=== PATIENT | female | born 1970 | race Caucasian/White ===

== ENCOUNTER 2016-07-10 06:20 | Outpatient (CLI) ==
[2016-06-09 16:43] VITALS: BMI 35.4
--- NOTE | 2016-07-10 12:45 | STRESSECHO ---
Date of Test: 07/10/16 Reason for Exam: CHEST PAIN, FAMILY HX, WEAKNESS Ordering Physician: CHERI LOPEZ CARDIO-[facility] Current Medications: PRILOSEC, ZOFRAN, ZENPEP Physical Findings: S1, S2, NO S3 Resting EKG: SINUS RHYTHM, NO ACUTE CHANGES Target Heart Rate: 147/173 STAGE MPH/GRADE HEART RATE BPM BLOOD PRESSURE mmhg RHYTHM S-T SEGMENT +/- UP DOWN SYMPTOMS,COMMENTS At Rest 77 112/75 SR X NONE 1 1.7/10% 122 140/78 SR X NONE 2 2.5/12% 3 3.4/14% 4 4.2/16% 5 5.0/18% Immediately after 130 SR X SHORT OF BREATH Durations of Exercise: 4:06 Maximum Heart Rate Reached: 130 Reason for Termination: SHORT OF BREATH INTERPRETATION: 98% OXYGEN SATURATION WITH EXERCISE ON ROOM AIR METS 7.0 1. NO EVIDENCE OF ISCHEMIA BY ST-T WAVE CHANGES (HEART RATE 75/MIN TO 130/MIN) 2. NO CHEST PAIN OR CHEST DISCOMFORT 3. NO ARRHYTHMIAS 4. BLOOD PRESSURE RESPONSE NORMAL NORMAL LEFT VENTRICULAR CONTRACTILITY--RESTING AND POST EXERCISE MTDD
--- NOTE | 2016-07-10 12:54 | ECHOSTRESS ---
Date of Exam: 07/10/16 Ordering Physician: [facility] Reason for Echo: CHEST PAIN, STRESS TEST--NO ISCHEMIA M-Mode Normal Adult Results LV Dimensions Normal Adult Results AoV Opening excursions >1.6 LVEDD-base- 3.5-5.8 Ao root dimensions 2.0-3.7 LVESD-base- 3.1-4.6 L. Atrium dimensions 1.9-3.8 Post. Wall thickness 0.8-1.1 IV septum (thickness) 0.7-1.2 Post. Wall excursion 0.72-1.3 Septal motion Systolic motion R. Ventricular cavity 1.5-2.0 LVEF 60% Paradoxical septal wall motion 2-D: NORMAL LEFT VENTRICULAR CONTRACTILITY AT REST--AND POST EXERCISE ( BORDERLINE LOW LVEF) M-MODE: MV: AV: TV: PV: CHAMBER SIZE: WALL MOTION: NORMAL LEFT VENTRICULAR CONTRACTILITY AT REST--AND POST EXERCISE ( BORDERLINE LOW LVEF) PERICARDIUM: INTERPRETATION: 1. NORMAL LEFT VENTRICULAR CONTRACTILITY AT REST--AND POST EXERCISE (BORDERLINE LOW LVEF) MTDD
--- NOTE | 2016-07-13 09:35 | HOLTER ---
PATIENT INFORMATION AND COMMENTS Indications: CHEST PAIN __ Patient Medications: PRILOSEC, ZENPEP __ Pre-procedure Summary: Protocol: Standard Heart Rate Started: 07/10/16716 Minimum: 49 BPM Weight: 205 LBS Ended: 07/11/16716 Maximum: 153 BPM Height: 63" Duration: 24 HOURS Average: 82 _ INTERPRETATIONS/OBSERVATIONS: 1. BASIC RHYTHM: SINUS, RATE 50/MINUTE TO 150/MINUTE, AVERAGE 80/MINUTE 2. RARE TO INFREQUENT ISOLATED PAC'S AND PVC'S 3. NO ST-T WAVE CHANGES FROM BASELINE 4. NO CORRELATION WITH ACTIVITY LOG MTDD
== END 2016-07-10 06:21 | disposition home or self-care (01) ==
LOC: CAR 06:20
PROVIDERS: ATTEND Internal Medicine Cardiovascular Disease
DX: R07.9 Chest pain, unspecified (principal)

== ENCOUNTER 2016-07-13 13:52 | Outpatient (CLI) ==
[2016-06-09 16:43] VITALS: BMI 35.4
[2016-07-13 14:09] LABS: HEMATOCRIT 40.4 % (37.0-47.0); HEMOGLOBIN 14.5 g/dl (12.0-16.0); MEAN CORPUSCULAR HEMOGLOBIN 34.5 pg (27.0-31.0); MEAN CORPUSCULAR HGB CONC 35.9 (31.8-35.4); MEAN CORPUSCULAR VOLUME 96.2 fl (81.0-99.0); PLATELET COUNT 209 10^3/uL (140-440)
[2016-07-13 14:47] LABS: ERYTHROCYTE SEDIMENTATION RATE 27 mm/hr (0-20); ESR INTERNAL QC INTERNAL QC VALID
[2016-07-14 07:19] LABS: RHEUMATOID ARTHRITIS FACTOR < 10.0 IU/mL (0.0-13.9)
[2016-07-14 16:29] LABS: ANTI-NUCLEAR ANTIBODY SCREEN Negative (Negative); C-REACTIVE PROTEIN 5.1 mg/L (0.0-4.9)
== END 2016-07-13 13:53 | disposition home or self-care (01) ==
LOC: LAB 13:52
PROVIDERS: ATTEND Preventive Medicine Undersea and Hyperbaric Medicine
DX: F41.9 Anxiety disorder, unspecified (principal); R53.83 Other fatigue; D53.9 Nutritional anemia, unspecified
CPT/HCPCS: 36415; 82607; 85027; 85651; 86038; 86140; 86430

== ENCOUNTER 2016-08-01 11:04 | Emergency (ER) ==
[2016-08-01 11:11] VITALS: BP 107/78; TEMP 98.5; BMI 36.5
[2016-08-01] MEDS ORDERED: DEMEROL 25 MG/ML SYRINGE IM STA (11:37)
[2016-08-01] MEDS ORDERED: GI COCKTAIL PO STA (11:37)
[2016-08-01] MEDS ORDERED: ZOFRAN 4 MG/2 ML IM STA (11:37)
--- NOTE | 2016-08-01 11:53 | ED.PDOC ---
[id number] [id number] Patient started with vomitings on , watery, and green now, diarrhea, non bloody, now belly pain throat is on fire. also burning urination, Time Seen by Physician: 11:51 Mode of Arrival: Walk-In Information Source: Patient Primary Care Provider: BINDU PATTON JR Nursing and Triage Documentation Reviewed and Agree: Yes GI Complaint Exam - Abdominal Pain Complaint/Exam Onset: Gradual Symptoms Are: Still present Timing: Constant Initial Severity: Mild Current Severity: Moderate Location of Pain: Epigastric, Suprapubic Character: Reports: Aching, Burning Aggravating: Reports: Movement, Food Alleviating: Reports: None Associated Signs and Symptoms: Reports: Dysuria, Urinary frequency, Nausea, Vomiting, Diarrhea AAA Risk Factors: Reports: None Cardiac Risk Factors: Reports: None Ectopic Risk Factors: Reports: None Ovarian Torsion Risk Factors: Reports: None Surgical Obstruction Risk Factors: Reports: None Related Surgical History: Reports: None Patient Rh Status: Unknown Abdominal Findings: Absent: Pulsatile mass, Abdominal distention, Unequal femoral pulses Differential Diagnoses: Gastroenteritis, PUD Review of Systems - Review Of Systems Constitutional: Reports: Weakness Eyes: Reports: No symptoms Ears, Nose, Mouth, Throat: Reports: No symptoms Respiratory: Reports: No symptoms Cardiac: Reports: No symptoms GI: Reports: Abdominal pain, Diarrhea, Nausea, Poor fluid intake, Vomiting : Reports: No symptoms Musculoskeletal: Reports: No symptoms Skin: Reports: No symptoms Neurological: Reports: No symptoms Endocrine: Reports: No symptoms Hematologic/Lymphatic: Reports: No symptoms All Other Systems: Reviewed and Negative Past Medical History - Past Medical History Previously Healthy: Yes Endocrine: Reports: None Cardiovascular: Reports: Hypertension, Other (SUPERVENTRICULAR TACHY) Respiratory: Reports: None Hematological: Reports: None Gastrointestinal: Reports: GERD, Pancreatitis (stone in tissue of pancreatic bile duct, pancreatitis), Other (HIATAL HERNIA, bowel obstructionx3) Genitourinary: Reports: UTI Neuro/Psych: Reports: TIA (MINI STROKES ), Anxiety, Depression Musculoskeletal: Reports: None Cancer: Reports: None Last Menstrual Period: hysterectomy - Surgical History General Surgical History: Reports: Hysterectomy, Cholecystectomy ( CYST L ADRENAL GLAND) - Family History Family History: Reports: Unknown - Social History Smoking Status: Current every day smoker, Light tobacco smoker Hx Substance Use: No Alcohol Screening: None Physical Exam - Physical Exam Appearance: Ill-appearing, Obese Eyes: WILFREDO, EOMI, Conjunctiva clear ENT: Ears normal, Nose normal, Oropharynx normal Respiratory: Airway patent, Breath sounds clear, Breath sounds equal, Respirations nonlabored Cardiovascular: RRR, Pulses normal, No rub, No murmur GI/: Soft, Nontender, No masses, Bowel sounds normal, No Organomegaly Musculoskeletal: Normal strength, ROM intact, No edema, No calf tenderness Skin: Warm, Dry, Normal color Neurological: Sensation intact, Motor intact, Reflexes intact, Cranial nerves intact, Alert, Oriented Psychiatric: Affect appropriate, Mood appropriate Interpretation - Radiology Interpretation Radiology Interpretation By: Radiologist Radiology Results: Negative Re-Evaluation - Re-Evaluation Status: Improved Critical Care Note - Critical Care Note Total Time (mins): 0 Course - Course Hematology/Chemistry: 08/01/16 11:55 08/01/16 11:55 Orders, Labs, Meds: Lab Review 08/01/16 02 11:55 12:40 WBC 11.96 H RBC 4.30 Hgb 14.3 Hct 40.7 MCV 94.7 MCH 33.3 H MCHC 35.1 RDW Coeff of Claudia 12.6 Plt Count 194 Immature Gran % (Auto) 0.3 Neut % (Auto) 79.7 Lymph % (Auto) 13.3 [place] % (Auto) 4.7 Eos % (Auto) 1.8 Baso % (Auto) 0.2 Immature Gran # (Auto) 0.0 Neut # 9.5 H Lymph # 1.6 [place] # 0.6 Eos # 0.2 Baso # 0.0 Sodium 141 Potassium 3.8 Chloride 104 Carbon Dioxide 26 Anion Gap 14.8 BUN 9 Creatinine 0.85 Estimated GFR (MDRD) 72.00 BUN/Creatinine Ratio 10.58 Glucose 110 Calcium 9.3 Total Bilirubin 0.46 AST 13 L ALT 11 L Alkaline Phosphatase 104 H Total Protein 7.0 Albumin 3.5 Globulin 3.5 Albumin/Globulin Ratio 1.00 Amylase 17 L Lipase 31 Urine Color Yellow Urine Clarity Clear Urine pH 6.0 Ur Specific Moodus 1.015 Urine Protein Negative Urine Glucose (UA) Negative Urine Ketones Negative Urine Blood Negative Urine Nitrite Negative Urine Bilirubin Negative Urine Urobilinogen 1.0 Ur Leukocyte Esterase Negative Orders Category Date Time Status AMYLASE Stat LAB 08/01/16 11:55 Completed CBC W/ AUTO DIFF Stat LAB 08/01/16 11:55 Completed COMPREHENSIVE METABOLIC PANEL Stat LAB 08/01/16 11:55 Completed LIPASE Stat LAB 08/01/16 11:55 Completed URINALYSIS C & S IF INDICATED Stat LAB 08/01/16 12:40 Completed Mag-Al Plus//Lidocaine [Gi Cocktail] MEDS 08/01/16 11:37 Discontinued 30 ml PO ONCE STA Meperidine HCl/Pf [Demerol 25 mg/ml Syringe] MEDS 08/01/16 11:37 Discontinued 25 mg IM ONCE STA Ondansetron HCl/Pf [Zofran 4 mg/2 ml] MEDS 08/01/16 11:37 Discontinued 4 mg IM ONCE STA CT ABDOMEN/PELVIS WO CONTRAST Stat RADS 08/01/16 11:37 Completed Medications Discontinued Medications Generic Name Dose Route Start Last Admin Trade Name Freq PRN Reason Stop Dose Admin Al Hydroxide/Mg Hydroxide 30 ml 08/01/16 11:37 08/01/16 12:22 Gi Cocktail PO 08/01/16 11:38 30 ml ONCE STA Administration Meperidine HCl 25 mg 08/01/16 11:37 08/01/16 11:55 Demerol 25 Mg/Ml Syringe IM 08/01/16 11:38 25 mg ONCE STA Administration Ondansetron HCl 4 mg 08/01/16 11:37 08/01/16 11:55 Zofran 4 Mg/2 Ml IM 08/01/16 11:38 4 mg ONCE STA Administration Vital Signs: Temp Pulse Resp BP Pulse Ox 08/01/16 11:05 98.5 F 122 H 20 107/78 97 Departure - Departure Time of Disposition: 12:58 Disposition: HOME SELF-CARE Discharge Problem: Gastroenteritis Instructions: Gastroenteritis (ED) Condition: Stable Pt referred to PMD for follow-up: Yes Additional Instructions: INCREASE HYDRATION SOFT DIET FOR 3-4 DAYS Prescriptions: Sucralfate Susp [Carafate] 1 gm PO ACHS #1 bottle Allergies/Adverse Reactions: Allergies amoxicillin Adverse Reaction (Verified 08/01/16 11:14) ciprofloxacin [From Cipro] Adverse Reaction (Verified 08/01/16 11:14) ciprofloxacin HCl [From Cipro] Adverse Reaction (Verified 08/01/16 11:14) erythromycin base Adverse Reaction (Verified 08/01/16 11:14) Sulfa (Sulfonamide Antibiotics) Adverse Reaction (Verified 08/01/16 11:14) Home Medications: Ambulatory Orders Lipase/Protease/Amylase [Sadia Hinton 36,000 Units Capsule] 1 each PO TID 06/09/16 Promethazine HCl [Phenergan Tab] 25 mg PO QID PRN #12 tablet 06/09/16 Sucralfate Susp [Carafate] 1 gm PO ACHS #1 bottle 08/01/16 Disposition Discussed With: Patient, Family
[2016-08-01 12:08] LABS: BASOPHILS % (AUTO) 0.2 % (0.0-3.0); EOSINOPHILS # (AUTO) 0.2 K/ul (0.0-0.7); EOSINOPHILS % (AUTO) 1.8 % (0.0-7.0); HEMATOCRIT 40.7 % (37.0-47.0); HEMOGLOBIN 14.3 g/dl (12.0-16.0); IMMATURE GRANULOCYTE % (AUTO) 0.3 % (0.0-5.0); LYMPHOCYTES # (AUTO) 1.6 K/uL (0.60-3.4); LYMPHOCYTES % (AUTO) 13.3 (10.0-50.0); MEAN CORPUSCULAR HEMOGLOBIN 33.3 pg (27.0-31.0); MEAN CORPUSCULAR HGB CONC 35.1 (31.8-35.4); MEAN CORPUSCULAR VOLUME 94.7 fl (81.0-99.0); MONOCYTES # (AUTO) 0.6 K/uL (0.4-2.0); MONOCYTES % (AUTO) 4.7 (0-10); NEUTROPHILS # (AUTO) 9.5 K/ul (2.0-6.9); NEUTROPHILS % (AUTO) 79.7; PLATELET COUNT 194 10^3/uL (140-440); WHITE BLOOD COUNT 11.96 K/ul (4.6-10.2)
[2016-08-01 12:25] LABS: ALBUMIN 3.5 g/dL (3.4-5.0); ANION GAP 14.8; BILIRUBIN,TOTAL 0.46 mg/dL (0.00-1.20); BUN/CREATININE RATIO 10.58; CALCIUM 9.3 mg/dL (8.2-10.2); CREATININE 0.85 mg/dL (0.60-1.30); POTASSIUM 3.8 mmol/L (3.5-5.10)
--- NOTE | 2016-08-01 12:27 | CT ---
EXAM: CT abdomen pelvis without contrast HISTORY: Abdominal pain COMPARISON: 08/10/2015 TECHNIQUE: CT abdomen pelvis performed without intravenous contrast. Coronal and sagittal reformat isabell images obtained. FINDINGS: Mild subsegmental atelectasis at the lung bases. No free air. No acute abnormalities of the bones. There is degenerative change in the spine. Evaluation organ parenchyma limited without contrast. The heart normal in size. There is a small pericardial effusion, grossly unchanged. Ev aluation organ parenchyma limited without contrast. Liver appears normal. Patient status post chol ecystectomy. Pancreas unremarkable. Spleen appears normal. There is stable left adrenal adenoma m easuring 2.2 cm. Right adrenal gland appears normal. No hydronephrosis or nephrolithiasis. No balaji culi visualized in normal course of the ureters. Bladder unremarkable. Patient status post hystere ctomy. There is stable left ovarian cyst measuring 2.4 cm. Aorta normal caliber. No lymphadenopat hy or ascites. Stomach appears normal. No dilated loops small bowel. Patient status post append ectomy. There is increased submucosal fat deposition in the colon.. There is mild colonic divertic ulosis. No inflammatory stranding in the abdomen pelvis IMPRESSION: 1. No acute inflammatory process identified in the abdomen or pelvis. 2. Small pericardial effusion, grossly unchanged. 3. Mild colonic diverticulosis. 4. Stable left adrenal adenoma. 5. Stable left ovarian cyst measuring 2.2 cm. 6. Increased submucosal fat deposition in the colon, a finding be seen in sequela of remote inflamm ation or infection, such as inflammatory bowel disease.
[2016-08-01 12:54] LABS: ADD URINE MICROSCOPIC NO; BILIRUBIN,URINE Negative (NEGATIVE); KETONES,URINE Negative (NEGATIVE); LEUKOCYTE ESTERASE ,URINE Negative (NEGATIVE); NITRITE,URINE Negative (NEGATIVE); PROTEIN,URINE Negative (NEGATIVE); URINE, BLOOD Negative (NEGATIVE)
== END 2016-08-01 13:43 | disposition home or self-care (01) ==
LOC: ED 11:04
DX: K52.9 Noninfective gastroenteritis and colitis, unspecified (principal); R30.0 Dysuria; R35.0 Frequency of micturition; F17.210 Nicotine dependence, cigarettes, uncomplicated; Z79.899 Other long term (current) drug therapy
CPT/HCPCS: 36415; 80053; 81001; 82150; 83690; 85025; 96372; 99283

== ENCOUNTER 2016-08-29 11:41 | Emergency (ER) ==
[2016-08-29 11:41] VITALS: BMI 36.5
[2016-08-29 11:59] VITALS: BP 111/72; TEMP 100.6
[2016-08-29] MEDS ORDERED: DECADRON 4 MG/ML SDV IM STA (12:17)
--- NOTE | 2016-08-29 12:21 | ED.PDOC ---
General ED Provider: Dr. BENNIE WOODS Chief Complaint: Respiratory Complaint Stated Complaint: coughing, sinus draiange, fever, Time Seen by Physician: 12:19 Mode of Arrival: Walk-In Information Source: Patient Primary Care Provider: BINDU PATTON JR Nursing and Triage Documentation Reviewed and Agree: Yes Respiratory Complaint Exam - Respiratory Complaint/Exam Symptoms Are: Still present Timing: Constant Initial Severity: Mild Current Severity: Mild Location: Nose, Throat, Chest Character: Reports: Productive cough Aggravating: Reports: Allergens, Passive smoke exposure Alleviating: Reports: None Associated Signs and Symptoms: Reports: Fever, URI, Nasal congestion, Hoarseness. Denies: Rapid breathing, Dyspnea, Chills, Chest pain, Pleuritic chest pain, Wheezing, Hemoptysis, Dizziness, Calf pain, Calf swelling, Edema, Sinus discomfort, Vomiting, Sore throat, Weight loss, Decreased oral intake, Increased thirst, Increased appetite, Increased urination History of Healthcare-Acquired Pneumonia: No Related Surgical History: Reports: None Pulmonary Embolism Risk Factors: None Cardiac Risk Factors: Reports: None Pseudomonas Risk Factors: Reports: None Tuberculosis Risk Factors: Reports: None Status Asthmaticus Risk Factors: Reports: None Home Oxygen Use: No Recent Stress Test: No Recent Echo/LV Function: No Current Antibiotic Use: No Current Asthma Medication Use: No Respiratory Distress: None Inadequate Respiratory Effort: No Dysphagia Present: No Stridor Present: No JVD Present: No Retractions: Not Present Diminished Breath Sounds: No Sinus Tenderness: None Grunting Respirations: No Kussmaul Respirations: No Differential Diagnoses: Pneumonia, Bronchitis Review of Systems - Review Of Systems Constitutional: Reports: Fever, Malaise Eyes: Reports: No symptoms Ears, Nose, Mouth, Throat: Reports: Nose discharge Respiratory: Reports: Cough Cardiac: Reports: No symptoms GI: Reports: No symptoms : Reports: No symptoms Musculoskeletal: Reports: No symptoms Skin: Reports: No symptoms Neurological: Reports: No symptoms Endocrine: Reports: No symptoms Hematologic/Lymphatic: Reports: No symptoms All Other Systems: Reviewed and Negative Past Medical History - Past Medical History Previously Healthy: Yes Endocrine: Reports: None Cardiovascular: Reports: Hypertension, Other (SUPERVENTRICULAR TACHY) Respiratory: Reports: None Hematological: Reports: None Gastrointestinal: Reports: GERD, Pancreatitis (stone in tissue of pancreatic bile duct, pancreatitis), Other (HIATAL HERNIA, bowel obstructionx3) Genitourinary: Reports: UTI Neuro/Psych: Reports: TIA (MINI STROKES ), Anxiety, Depression Musculoskeletal: Reports: None Cancer: Reports: None Last Menstrual Period: n/a - Surgical History General Surgical History: Reports: Hysterectomy, Cholecystectomy ( CYST L ADRENAL GLAND) - Family History Family History: Reports: Unknown - Social History Smoking Status: Current every day smoker, Light tobacco smoker Smoking Cessation Counseling Time: > 3 min - 10 min Hx Substance Use: No Alcohol Screening: None Physical Exam - Physical Exam Appearance: Well-appearing, Obese Eyes: WILFREDO, EOMI, Conjunctiva clear ENT: Rhinorrhea Respiratory: Airway patent, Breath sounds clear, Breath sounds equal, Respirations nonlabored Cardiovascular: RRR, Pulses normal, No rub, No murmur GI/: Soft, Nontender, No masses, Bowel sounds normal, No Organomegaly Musculoskeletal: Normal strength, ROM intact, No edema, No calf tenderness Skin: Warm, Dry, Normal color Neurological: Sensation intact, Motor intact, Reflexes intact, Cranial nerves intact, Alert, Oriented Psychiatric: Affect appropriate, Mood appropriate Interpretation - Radiology Interpretation Radiology Interpretation By: Radiologist Radiology Results: Negative Exam Interpreted: CXR Critical Care Note - Critical Care Note Total Time (mins): 0 Course - Course Orders, Labs, Meds: Lab Review 08/29/16 12:48 Influenza A (Rapid) Negative Influenza B (Rapid) Negative Orders Category Date Time Status RAPID FLU A/B Stat LAB 08/29/16 12:48 Completed Dexamethasone 4 mg/ml Inj [Decadron 4 mg/ml Sdv] MEDS 08/29/16 12:17 Discontinued 4 mg IM ONCE STA CHEST, 2 VIEWS PA & LAT Stat RADS 08/29/16 12:17 Completed Medications Discontinued Medications Generic Name Dose Route Start Last Admin Trade Name Freq PRN Reason Stop Dose Admin Dexamethasone Sodium Phosphate 4 mg 08/29/16 12:17 08/29/16 12:41 Decadron 4 Mg/Ml Sdv IM 08/29/16 12:18 4 mg ONCE STA Administration Vital Signs: Temp Pulse Resp BP Pulse Ox 08/29/16 11:42 100.6 F H 104 H 16 111/72 96 Departure - Departure Time of Disposition: 13:52 Disposition: HOME SELF-CARE Discharge Problem: URTI (acute upper respiratory infection) Instructions: Upper Respiratory Infection in Children (ED) Condition: Stable Pt referred to PMD for follow-up: Yes Additional Instructions: NO SMOKING INCREASE HYDRATION TAKE MEDICATIONS WITH FOOD Prescriptions: Cephalexin [Keflex] 500 mg PO Q12HR #20 capsule Guaifenesin/Codeine Phosphate [Robitussin AC Syrup] 10 ml PO Q6H #1 bottle Prednisone 10 mg PO BIDWM #14 tablet Allergies/Adverse Reactions: Allergies amoxicillin Adverse Reaction (Verified 08/29/16 11:46) ciprofloxacin [From Cipro] Adverse Reaction (Verified 08/29/16 11:46) ciprofloxacin HCl [From Cipro] Adverse Reaction (Verified 08/29/16 11:46) erythromycin base Adverse Reaction (Verified 08/29/16 11:46) Sulfa (Sulfonamide Antibiotics) Adverse Reaction (Verified 08/29/16 11:46) Home Medications: Ambulatory Orders Lipase/Protease/Amylase [Sadia Dr 36,000 Units Capsule] 1 each PO TID 06/09/16 Sucralfate Susp [Carafate] 1 gm PO ACHS #1 bottle 08/01/16 Cephalexin [Keflex] 500 mg PO Q12HR #20 capsule 08/29/16 Citalopram Hydrobromide [Celexa] 20 mg PO DAILY 08/29/16 Clonazepam [Klonopin] 0.5 mg PO BID 08/29/16 Guaifenesin/Codeine Phosphate [Robitussin AC Syrup] 10 ml PO Q6H #1 bottle 08/29 Prednisone 10 mg PO BIDWM #14 tablet 08/29/16 Ranitidine HCl 300 mg PO DAILY 08/29/16 Disposition Discussed With: Patient
--- NOTE | 2016-08-29 13:02 | DI ---
EXAM: CHEST FRONTAL AND LATERAL VIEWS HISTORY: Cough. COMPARISON: 04/09/2016 FINDINGS: Heart size and mediastinal contour remain within normal limits. No acute infiltrates. Normal vascularity with no pleural fluid or pneumothorax. The bony thorax has no acute finding. IMPRESSION: No acute process.
[2016-08-29 13:10] LABS: FLU INTERNAL QC INTERNAL QC VALID; RAPID FLU A NEGATIVE (NEGATIVE); RAPID FLU B NEGATIVE (NEGATIVE)
== END 2016-08-29 14:10 | disposition home or self-care (01) ==
LOC: ED 11:41
DX: J06.9 Acute upper respiratory infection, unspecified (principal); F17.210 Nicotine dependence, cigarettes, uncomplicated
CPT/HCPCS: 87804; 96372; 99283

== ENCOUNTER 2016-10-16 11:08 | Emergency (ER) ==
[2016-10-16 11:22] VITALS: BP 111/80; TEMP 97; BMI 37.2
[2016-10-16 12:25] LABS: BASOPHILS % (AUTO) 0.3 % (0.0-3.0); EOSINOPHILS # (AUTO) 0.2 K/ul (0.0-0.7); EOSINOPHILS % (AUTO) 2.1 % (0.0-7.0); HEMATOCRIT 40.3 % (37.0-47.0); HEMOGLOBIN 13.8 g/dl (12.0-16.0); IMMATURE GRANULOCYTE % (AUTO) 0.3 % (0.0-5.0); LYMPHOCYTES # (AUTO) 2.6 K/uL (0.60-3.4); LYMPHOCYTES % (AUTO) 25.3 (10.0-50.0); MEAN CORPUSCULAR HEMOGLOBIN 32.8 pg (27.0-31.0); MEAN CORPUSCULAR HGB CONC 34.2 (31.8-35.4); MEAN CORPUSCULAR VOLUME 95.7 fl (81.0-99.0); MONOCYTES # (AUTO) 0.4 K/uL (0.4-2.0); MONOCYTES % (AUTO) 4.1 (0-10); NEUTROPHILS # (AUTO) 7.1 K/ul (2.0-6.9); NEUTROPHILS % (AUTO) 67.9; PLATELET COUNT 197 10^3/uL (140-440); RED BLOOD COUNT 4.21 10^6/ul (4.20-5.40); WHITE BLOOD COUNT 10.44 K/ul (4.6-10.2)
[2016-10-16 12:51] LABS: ALBUMIN 3.5 g/dL (3.4-5.0); ALBUMIN/GLOBULIN RATIO 1.09; BILIRUBIN,TOTAL 0.3 mg/dL (0.00-1.20); BUN/CREATININE RATIO 13.88; CALCIUM 8.8 mg/dL (8.2-10.2); CREATININE 0.72 mg/dL (0.60-1.30); TOTAL PROTEIN 6.7 g/dL (6.4-8.2)
--- NOTE | 2016-10-16 12:57 | CT ---
EXAM: CT ABDOMEN AND PELVIS HISTORY: Abdominal pain, left flank TECHNIQUE: CT abdomen and pelvis without intravenous contrast. Images were reconstructed using 5 m m section thickness. Reformations were prepared. COMPARISON: 08/01/2016 FINDINGS: Diagnostic limitations exist without including contrast enhanced images. No focal hepatic lesions. There is a tiny amount of pneumobilia which has been seen on previous exams possibly related to pre vious procedure or incompetent sphincter. Spleen within normal limits. Gallbladder is absent. No pancreatic pathology is suggested. There is a 1.8 cm fatty nodule the left adrenal gland which is s table in size most consistent with an adenoma. Kidneys have no evidence of hydronephrosis or nephro lithiasis. There is no perinephric fat stranding. Ureters are clear. Minimal aortic atherosclerosi s. Stomach is unremarkable. Appendix has been removed. Normal bowel gas pattern. Uterus has been rem ashley. What appears to represent the left ovary has a small 2.3 cm cystic mass. Urinary bladder is unremarkable. There is no ascites or inflammatory infiltration of the abdominal fat. No abdominal wall hernia. Bones reveal moderately severe facet arthropathy of the lumbosacral junct ion. Lung bases reveal a stable small pericardial effusion and no consolidations. There is no pneu moperitoneum. IMPRESSION: 1. No etiology for the patient's symptoms identified. 2. Tiny amount of pneumobilia also seen on previous exams. 3. Fatty left adrenal nodule is stable, likely adenoma. 4. Small 2.3 cm cystic mass of the left ovary. This can be followed by ultrasound to assure simple nature. 5. Small stable pericardial effusion.
[2016-10-16] MEDS: ZOFRAN 4 MG/2 ML IM STA (12:59)
[2016-10-16] MEDS: MORPHINE 4 MG/ML SYRINGE IM STA ×2 (13:00→13:57)
[2016-10-16 13:02] LABS: BILIRUBIN,URINE Negative (NEGATIVE); KETONES,URINE Negative (NEGATIVE); LEUKOCYTE ESTERASE ,URINE Negative (NEGATIVE); NITRITE,URINE Negative (NEGATIVE); PH,URINE 5.5 (5-9); PROTEIN,URINE Negative (NEGATIVE); URINE, BLOOD Negative (NEGATIVE)
[2016-10-16 13:04] LABS: ADD URINE MICROSCOPIC NO
--- NOTE | 2016-10-16 14:26 | US ---
EXAM: Transvaginal pelvic ultrasound. History: Left lower quadrant abdominal pain. Comparison: CT abdomen pelvis 10/16/2016 Technique: Multiple sonographic images through the pelvis were obtained. Color duplex Doppler was used to interrogate vascular flow. Findings: The uterus is not seen and likely has been surgically removed. The right ovary is not seen and like ly has been surgically removed. 2.9 cm x 1.7 cm x 3.1 cm cystic left adnexal lesion with minimal internal echoes. No fluid in the pelvis. Impression: Minimally complicated cystic left adnexal lesion.
--- NOTE | 2016-10-16 14:39 | ED.PDOC ---
General ED Provider: Dr. ELVIS CROCKETT Chief Complaint: Abdominal Pain Stated Complaint: ABDOMINAL PAIN Time Seen by Physician: 11:10 (CHRONIC WORSE TODAY) Mode of Arrival: Walk-In Information Source: Patient Exam Limitations: No limitations Primary Care Provider: BINDU PATTON JR Nursing and Triage Documentation Reviewed and Agree: Yes (HAS OVARIAN CYSTS) GI Complaint Exam - Abdominal Pain Complaint/Exam Onset: Gradual Duration: 1 DAY Timing: Constant Initial Severity: Moderate Current Severity: Moderate Location of Pain: LLQ Radiates To: Reports: LLQ Character: Reports: Cramping Aggravating: Reports: None Alleviating: Reports: None Associated Signs and Symptoms: Denies: Diaphoresis, Fever, Cough, Chest pain, Dizziness, Back pain, Constipation, Blood in stool, Dysuria, Urinary frequency, Decreased urine output, Decreased appetite, Vaginal bleeding, Vaginal discharge , Nausea, Vomiting, Diarrhea, Sore throat, Decreased activity Related History: Reports: Similar episode AAA Risk Factors: Reports: Hypertension Cardiac Risk Factors: Reports: Hypertension Ectopic Risk Factors: Reports: None Ovarian Torsion Risk Factors: Reports: None Surgical Obstruction Risk Factors: Reports: None Related Surgical History: Reports: None Patient Rh Status: Unknown Abdominal Findings: Present: None Differential Diagnoses: Appendicitis, Bowel Obstruction, Constipation, Diverticulitis, Gastroenteritis, Hepatitis, Pancreatitis, Ovarian Cyst Review of Systems - Review Of Systems Constitutional: Reports: No symptoms Eyes: Reports: No symptoms Ears, Nose, Mouth, Throat: Reports: No symptoms Respiratory: Reports: No symptoms Cardiac: Reports: No symptoms GI: Reports: Abdominal pain : Reports: No symptoms Musculoskeletal: Reports: No symptoms Skin: Reports: No symptoms Neurological: Reports: No symptoms Endocrine: Reports: No symptoms Hematologic/Lymphatic: Reports: No symptoms All Other Systems: Reviewed and Negative Past Medical History - Past Medical History Previously Healthy: Yes Endocrine: Reports: None Cardiovascular: Reports: Hypertension, Other (SUPERVENTRICULAR TACHY) Respiratory: Reports: None Hematological: Reports: None Gastrointestinal: Reports: GERD, Pancreatitis (stone in tissue of pancreatic bile duct, pancreatitis), Other (HIATAL HERNIA, bowel obstructionx3) Genitourinary: Reports: UTI Neuro/Psych: Reports: TIA (MINI STROKES ), Anxiety, Depression Musculoskeletal: Reports: None Cancer: Reports: None Last Menstrual Period: hysterectomy - Surgical History General Surgical History: Reports: Hysterectomy, Cholecystectomy ( CYST L ADRENAL GLAND) - Family History Family History: Reports: Unknown - Social History Smoking Status: Current every day smoker, Light tobacco smoker Hx Substance Use: No Alcohol Screening: None Physical Exam - Physical Exam Appearance: Well-appearing, No pain distress, Well-nourished Eyes: WILFREDO, EOMI, Conjunctiva clear ENT: Ears normal, Nose normal, Oropharynx normal Respiratory: Airway patent, Breath sounds clear, Breath sounds equal, Respirations nonlabored Cardiovascular: RRR, Pulses normal, No rub, No murmur GI/: Soft, Nontender, No masses, Bowel sounds normal, No Organomegaly Musculoskeletal: Normal strength, ROM intact, No edema, No calf tenderness Skin: Warm, Dry, Normal color Neurological: Sensation intact, Motor intact, Reflexes intact, Cranial nerves intact, Alert, Oriented Psychiatric: Affect appropriate, Mood appropriate Interpretation - Radiology Interpretation Radiology Interpretation By: Radiologist Radiology Results: Positive (COMPLEX CYSTS ON LEFT OVARY) Critical Care Note - Critical Care Note Total Time (mins): 0 Course - Course Hematology/Chemistry: 10/16/16 12:15 10/16/16 12:15 Orders, Labs, Meds: Lab Review 10/16/16 10/16/16 11:35 12:15 WBC 10.44 H RBC 4.21 Hgb 13.8 Hct 40.3 MCV 95.7 MCH 32.8 H MCHC 34.2 RDW Coeff of Claudia 12.8 Plt Count 197 Immature Gran % (Auto) 0.3 Neut % (Auto) 67.9 Lymph % (Auto) 25.3 Piatt % (Auto) 4.1 Eos % (Auto) 2.1 Baso % (Auto) 0.3 Immature Gran # (Auto) 0.0 Neut # 7.1 H Lymph # 2.6 Piatt # 0.4 Eos # 0.2 Baso # 0.0 Sodium 138 Potassium 4.0 Chloride 109 H Carbon Dioxide 22 Anion Gap 11.0 BUN 10 Creatinine 0.72 Estimated GFR (MDRD) 87.00 BUN/Creatinine Ratio 13.88 Glucose 97 Calcium 8.8 Total Bilirubin 0.30 AST 11 L ALT 11 L Alkaline Phosphatase 97 Total Protein 6.7 Albumin 3.5 Globulin 3.2 Albumin/Globulin Ratio 1.09 Amylase 28 Lipase 36 Urine Color Yellow Urine Clarity Clear Urine pH 5.5 Ur Specific [place]ette >=1.030 Urine Protein Negative Urine Glucose (UA) Negative Urine Ketones Negative Urine Blood Negative Urine Nitrite Negative Urine Bilirubin Negative Urine Urobilinogen 0.2 Ur Leukocyte Esterase Negative Orders Category Date Time Status AMYLASE Stat LAB 10/16/16 12:13 Ordered CBC W/ AUTO DIFF Stat LAB 10/16/16 12:13 Ordered COMPREHENSIVE METABOLIC PANEL Stat LAB 10/16/16 12:13 Ordered LIPASE Stat LAB 10/16/16 12:13 Ordered URINALYSIS C & S IF INDICATED Stat LAB 10/16/16 12:13 Uncollected Morphine Sulfate [Morphine 4 mg/ml Syringe] MEDS 10/16/16 12:27 Stat 4 mg IM ONCE STA Morphine Sulfate [Morphine 4 mg/ml Syringe] MEDS 10/16/16 13:46 Stat 4 mg IM ONCE STA Ondansetron HCl/Pf [Zofran 4 mg/2 ml] MEDS 10/16/16 12:27 Stat 4 mg IM ONCE STA CT ABDOMEN/PELVIS WO CONTRAST Stat RADS 10/16/16 12:13 Ordered ULTRASOUND PELVIS WILSON VAGINAL/NONOB [U/S PELVIS WILSON RADS 10/16/16 13:44 Ordered VAGINAL/NON OB] Stat Medications Discontinued Medications Generic Name Dose Route Start Last Admin Trade Name Freq PRN Reason Stop Dose Admin Morphine Sulfate 4 mg 10/16/16 12:27 10/16/16 13:00 Morphine 4 Mg/Ml Syringe IM 10/16/16 12:28 4 mg ONCE STA Administration Morphine Sulfate 4 mg 10/16/16 13:46 10/16/16 13:57 Morphine 4 Mg/Ml Syringe IM 10/16/16 13:47 4 mg ONCE STA Administration Ondansetron HCl 4 mg 10/16/16 12:27 10/16/16 12:59 Zofran 4 Mg/2 Ml IM 10/16/16 12:28 4 mg ONCE STA Administration Vital Signs: Temp Pulse Resp BP Pulse Ox 10/16/16 11:10 97.0 F L 85 20 111/80 93 L Departure - Departure Time of Disposition: 14:39 (SEEN WITH STAFF AT ALL TIMES ) Disposition: HOME SELF-CARE Discharge Problem: Abdominal pain, Complex cyst of left ovary Instructions: Ovarian Cyst (ED), Abdominal Pain (ED), Chronic Abdominal Pain ( ED) Condition: Good Pt referred to PMD for follow-up: No Additional Instructions: Please call your Family Physician as soon as possible to schedule a follow-up appointment. Allergies/Adverse Reactions: Allergies amoxicillin Adverse Reaction (Verified 08/29/16 11:46) ciprofloxacin [From Cipro] Adverse Reaction (Verified 08/29/16 11:46) ciprofloxacin HCl [From Cipro] Adverse Reaction (Verified 08/29/16 11:46) erythromycin base Adverse Reaction (Verified 08/29/16 11:46) Sulfa (Sulfonamide Antibiotics) Adverse Reaction (Verified 08/29/16 11:46) Home Medications: Ambulatory Orders Lipase/Protease/Amylase [Sadia Hinton 36,000 Units Capsule] 1 each PO TID 06/09/16 Sucralfate Susp [Carafate] 1 gm PO ACHS #1 bottle 08/01/16 Cephalexin [Keflex] 500 mg PO Q12HR #20 capsule 08/29/16 Citalopram Hydrobromide [Celexa] 20 mg PO DAILY 08/29/16 Clonazepam [Klonopin] 0.5 mg PO BID 08/29/16 Guaifenesin/Codeine Phosphate [Robitussin AC Syrup] 10 ml PO Q6H #1 bottle 08/29 Prednisone 10 mg PO BIDWM #14 tablet 08/29/16 Ranitidine HCl 300 mg PO DAILY 08/29/16
== END 2016-10-16 14:50 | disposition home or self-care (01) ==
LOC: ED 11:08
DX: N83.202 Unspecified ovarian cyst, left side (principal); I10 Essential (primary) hypertension; F17.210 Nicotine dependence, cigarettes, uncomplicated
CPT/HCPCS: 36415; 80053; 81001; 82150; 83690; 85025; 96372; 99283

== ENCOUNTER 2016-11-18 11:22 | Outpatient (CLI) ==
[2016-11-18 13:09] LABS: ALBUMIN/GLOBULIN RATIO 1.21; ANION GAP 12.1; BILIRUBIN,TOTAL 0.4 mg/dL (0.00-1.20); CALCIUM 9.5 mg/dL (8.2-10.2); CREATININE 0.75 mg/dL (0.60-1.30); POTASSIUM 4.1 mmol/L (3.5-5.10); TOTAL PROTEIN 7.3 g/dL (6.4-8.2)
--- NOTE | 2016-11-19 13:51 | HOLTER ---
PATIENT INFORMATION AND COMMENTS Indications: PALPITATIONS __ Patient Medications: TRAMADOL, NEXIUM, ONDANSETRON, RANITIDINE, DICYCLOMINE, CREON, LEXAPRO, NITROGLYCERINE __ Pre-procedure Summary: Protocol: Standard Heart Rate Started: 11/18/16 70311 Minimum: 53 BPM Weight: 2O7 LBS Ended: 11/19/16 1251 Maximum: 178 BPM Height: 63" Duration: 24 HOURS Average: 92 BPM _ INTERPRETATIONS/OBSERVATIONS: 1. BASIC RHYTHM: SINUS, RATE 53 TO 170/MINUTE, AVERAGE 90/MINUTE 2. REAR PVC'S/ INFREQUENT PAC'S 3. ONE EPISODE OF SUPRAVENTRICULAR TACHYCARDIA NOTED WITH RATE 170/BPM LASTING OF APPROXIMATELY 9 TO [address]-T WAVE CHANGES FROM BASELINE 5. ACTIVITY LOG NOT MAINTAINED MTDD
[2016-11-20 09:27] LABS: ACTH 9.5 pg/mL (7.2-63.3)
== END 2016-11-18 11:23 | disposition home or self-care (01) ==
LOC: CAR 11:22
PROVIDERS: ATTEND Internal Medicine Cardiovascular Disease
DX: I10 Essential (primary) hypertension (principal); R11.2 Nausea with vomiting, unspecified; R73.9 Hyperglycemia, unspecified; R53.83 Other fatigue; E27.9 Disorder of adrenal gland, unspecified; R00.2 Palpitations
CPT/HCPCS: 36415; 80053; 82024; 82533; 83036; 84439; 84443

== ENCOUNTER 2016-11-29 20:14 | Inpatient (IN) ==
[2016-11-29 20:33] LABS: BASOPHILS % (AUTO) 0.4 % (0.0-3.0); EOSINOPHILS # (AUTO) 0.2 K/ul (0.0-0.7); EOSINOPHILS % (AUTO) 1.5 % (0.0-7.0); HEMATOCRIT 40.9 % (37.0-47.0); HEMOGLOBIN 14.3 g/dl (12.0-16.0); IMMATURE GRANULOCYTE % (AUTO) 0.3 % (0.0-5.0); LYMPHOCYTES # (AUTO) 3.6 K/uL (0.60-3.4); LYMPHOCYTES % (AUTO) 31.6 (10.0-50.0); MEAN CORPUSCULAR VOLUME 94.5 fl (81.0-99.0); MONOCYTES # (AUTO) 0.5 K/uL (0.4-2.0); MONOCYTES % (AUTO) 4.2 (0-10); PLATELET COUNT 207 10^3/uL (140-440); RED BLOOD COUNT 4.33 10^6/ul (4.20-5.40); WHITE BLOOD COUNT 11.33 K/ul (4.6-10.2)
[2016-11-29] MEDS ORDERED: ASPIRIN CHEWABLE PO STA (20:46)
[2016-11-29] MEDS ORDERED: ATIVAN PO STA (20:46)
[2016-11-29] MEDS ORDERED: ZOFRAN 4 MG/2 ML IVP STA (20:46)
[2016-11-29] MEDS ORDERED: MORPHINE 2 MG/ML SYRINGE IVP STA (20:46)
[2016-11-29] MEDS ORDERED: SODIUM CHLORIDE 500 ML IV STA (20:47)
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
[2016-11-29 20:58] LABS: ALBUMIN 3.8 g/dL (3.4-5.0); ALBUMIN/GLOBULIN RATIO 1.19; ANION GAP 13.7; BILIRUBIN,TOTAL 0.56 mg/dL (0.00-1.20); BUN/CREATININE RATIO 10.34; CALCIUM 9.3 mg/dL (8.2-10.2); CREATININE 0.87 mg/dL (0.60-1.30); POTASSIUM 3.7 mmol/L (3.5-5.10); TROPONIN I 0.012 ng/ml (0.0000-0.4000)
--- NOTE | 2016-11-29 22:57 | CT ---
EXAM: CT pulmonary angiogram. HISTORY: Chest pain. Elevated D-dimer. Evaluate for pulmonary embolism. PROCEDURE: After the intravenous injection of contrast a CT pulmonary angiogram was performed with contiguous axial CT images of the chest and multiplanar and 3-D reformats. FINDINGS: There is suboptimal enhancement of the pulmonary arteries secondary to mistiming of the co ntrast bolus in relation to image acquisition and pulmonary embolism cannot be excluded. The heart is within normal limits in size. There is a small pericardial effusion measuring 0.5 cm AP. The thor acic aorta is within normal limits in diameter. There are calcified mediastinal and hilar lymph nod es. There is minimal right lower lobe atelectasis and/or pneumonia. The bones and soft tissues are u nremarkable. There is a 2.6 cm left benign adrenal adenoma. The right adrenal gland is normal in ap pearance. There is minimal pneumobilia. Impression: Nondiagnostic CT pulmonary angiogram as described. Pulmonary embolism cannot be exclud ed. Recommend nuclear medicine ventilation-perfusion lung scan for further evaluation if clinically indicated. Minimal right lower lobe atelectasis and/or pneumonia. Small pericardial effusion as described.
[2016-11-29] MEDS ORDERED: TORADOL IVP STA (22:59)
[2016-11-29] MEDS ORDERED: TYLENOL PO PRN (23:49)
[2016-11-29] MEDS ORDERED: NORCO 5-325 PO PRN (23:49)
[2016-11-29] MEDS ORDERED: MORPHINE 2 MG/ML SYRINGE IVP PRN (23:49)
[2016-11-29] MEDS ORDERED: NITROSTAT SL PRN (23:55)
[2016-11-30] MEDS ORDERED: TORADOL IVP PRN (00:11)
[2016-11-30] MEDS: D5%-NS-KCL 20 MEQ/L IV SOL 1,000 ML IV SCH ×2 (00:37→15:24)
[2016-11-30 01:04] VITALS: BMI 36.8
[2016-11-30] MEDS ORDERED: TORADOL ONE (04:09)
[2016-11-30] MEDS: ZOFRAN 4 MG/2 ML IVP PRN ×2 (05:12→20:25)
[2016-11-30] MEDS: ATIVAN PO PRN ×3 (05:13→22:27)
[2016-11-30 06:14] LABS: BASOPHILS # (AUTO) 0.1 K/uL (0-0.2); BASOPHILS % (AUTO) 0.6 % (0.0-3.0); EOSINOPHILS # (AUTO) 0.2 K/ul (0.0-0.7); EOSINOPHILS % (AUTO) 2.6 % (0.0-7.0); HEMOGLOBIN 13.1 g/dl (12.0-16.0); IMMATURE GRANULOCYTE % (AUTO) 0.2 % (0.0-5.0); LYMPHOCYTES # (AUTO) 2.9 K/uL (0.60-3.4); LYMPHOCYTES % (AUTO) 34.4 (10.0-50.0); MEAN CORPUSCULAR HEMOGLOBIN 33.1 pg (27.0-31.0); MEAN CORPUSCULAR HGB CONC 34.5 (31.8-35.4); MONOCYTES # (AUTO) 0.4 K/uL (0.4-2.0); MONOCYTES % (AUTO) 4.8 (0-10); NEUTROPHILS # (AUTO) 4.9 K/ul (2.0-6.9); NEUTROPHILS % (AUTO) 57.4; PLATELET COUNT 173 10^3/uL (140-440); RED BLOOD COUNT 3.96 10^6/ul (4.20-5.40); WHITE BLOOD COUNT 8.55 K/ul (4.6-10.2)
[2016-11-30 06:39] LABS: ANION GAP 11.9; BLOOD UREA NITROGEN 11 mg/dL (7-18); BUN/CREATININE RATIO 14.28; CALCIUM 8.5 mg/dL (8.2-10.2); CARBON DIOXIDE 22 mmol/L (21-32); CHLORIDE 113 mmol/L (98-107); CREATINE KINASE 47 U/L; CREATININE 0.77 mg/dL (0.60-1.30); GLUCOSE 96 mg/dL (70-110); POTASSIUM 3.9 mmol/L (3.5-5.10); SODIUM 143 mmol/L (136-145)
--- NOTE | 2016-11-30 07:50 | DI ---
EXAM: Chest one view. CLINICAL INDICATION: Chest pain. COMPARISON: 08/29/2016. FINDINGS: A single AP radiograph of the thorax is provided. The pulmonary parenchyma is clear and there is no pleural abnormality. The cardiomediastinal silhou ette and visualized bony structures are unremarkable. IMPRESSION: Negative chest x-ray.
[2016-11-30] MEDS ORDERED: NON-FORMULARY MEDICATION (Ranitidine Hcl [Ranitidine Hcl] 300 MG) PO SCH (09:00)
[2016-11-30] MEDS ORDERED: LOVENOX SUBCUT SCH (09:00)
[2016-11-30] MEDS: ASPIRIN EC PO SCH (09:26)
[2016-11-30] MEDS: LEXAPRO PO SCH (09:27)
[2016-11-30] MEDS: CREON DR 12,000 UNITS CAPSULE PO SCH ×4 (09:27→22:27)
[2016-11-30] MEDS: LOPRESSOR PO SCH (09:28)
[2016-11-30] MEDS: LOVENOX SUBCUT SCH ×2 (09:28→22:27)
[2016-11-30] MEDS: ZANTAC PO SCH (09:29)
--- NOTE | 2016-11-30 09:39 | NM ---
EXAM: Ventilation-perfusion lung scan HISTORY: Chest pain COMPARISON: Chest x-ray of this morning is normal. TECHNIQUE: Patient was injected 5.2 mCi of technetium 99m labeled MAA intravenously. The patient wa s given 31.1 mCi of technetium 99m DTPA aerosol for ventilation imaging. FINDINGS: No segmental or subsegmental perfusion defect is identified. Aerosol distribution is homo geneous in both lung davila throughout. IMPRESSION: Normal VQ scan
[2016-11-30 14:58] LABS: CREATINE KINASE 47 U/L
[2016-11-30 22:48] LABS: CREATINE KINASE 48 U/L
[2016-12-01] MEDS: LOPRESSOR PO SCH ×3 (02:41→20:05)
[2016-12-01] MEDS: D5%-NS-KCL 20 MEQ/L IV SOL 1,000 ML IV SCH ×2 (04:28→20:30)
[2016-12-01] MEDS: ZANTAC PO SCH (05:31)
[2016-12-01 06:18] LABS: BASOPHILS % (AUTO) 0.4 % (0.0-3.0); EOSINOPHILS # (AUTO) 0.2 K/ul (0.0-0.7); EOSINOPHILS % (AUTO) 2.2 % (0.0-7.0); HEMATOCRIT 37.2 % (37.0-47.0); HEMOGLOBIN 12.8 g/dl (12.0-16.0); IMMATURE GRANULOCYTE % (AUTO) 0.3 % (0.0-5.0); LYMPHOCYTES # (AUTO) 2.4 K/uL (0.60-3.4); MEAN CORPUSCULAR HEMOGLOBIN 32.9 pg (27.0-31.0); MEAN CORPUSCULAR HGB CONC 34.4 (31.8-35.4); MEAN CORPUSCULAR VOLUME 95.6 fl (81.0-99.0); MONOCYTES # (AUTO) 0.3 K/uL (0.4-2.0); MONOCYTES % (AUTO) 4.3 (0-10); NEUTROPHILS # (AUTO) 4.6 K/ul (2.0-6.9); NEUTROPHILS % (AUTO) 60.8; PLATELET COUNT 157 10^3/uL (140-440); RED BLOOD COUNT 3.89 10^6/ul (4.20-5.40)
[2016-12-01 06:38] LABS: ANION GAP 11.1; BUN/CREATININE RATIO 7.57; CALCIUM 8.5 mg/dL (8.2-10.2); CREATININE 0.66 mg/dL (0.60-1.30); POTASSIUM 4.1 mmol/L (3.5-5.10)
[2016-12-01 06:45] LABS: CREATINE KINASE 40 U/L
[2016-12-01] MEDS: LOVENOX SUBCUT SCH ×2 (08:15→20:06)
[2016-12-01] MEDS: ASPIRIN EC PO SCH (08:16)
[2016-12-01] MEDS: LEXAPRO PO SCH (08:16)
[2016-12-01] MEDS: CREON DR 12,000 UNITS CAPSULE PO SCH ×4 (08:16→20:05)
[2016-12-01 08:52] LABS: ALBUMIN 3.1 g/dL (3.4-5.0); ALBUMIN/GLOBULIN RATIO 1.11; ANION GAP 12.1; BILIRUBIN,TOTAL 0.37 mg/dL (0.00-1.20); BUN/CREATININE RATIO 7.35; CALCIUM 8.6 mg/dL (8.2-10.2); CHOL/HDL RATIO 4.7 (4.5-5.5); CREATININE 0.68 mg/dL (0.60-1.30); POTASSIUM 4.1 mmol/L (3.5-5.10); TOTAL PROTEIN 5.9 g/dL (6.4-8.2)
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
[2016-12-01] MEDS: ATIVAN PO PRN (19:02)
[2016-12-01] MEDS: TORADOL IVP PRN (20:25)
[2016-12-02 04:44] LABS: BASOPHILS % (AUTO) 0.3 % (0.0-3.0); EOSINOPHILS # (AUTO) 0.3 K/ul (0.0-0.7); EOSINOPHILS % (AUTO) 3.7 % (0.0-7.0); HEMOGLOBIN 12.6 g/dl (12.0-16.0); IMMATURE GRANULOCYTE % (AUTO) 0.3 % (0.0-5.0); LYMPHOCYTES # (AUTO) 2.6 K/uL (0.60-3.4); LYMPHOCYTES % (AUTO) 35.1 (10.0-50.0); MEAN CORPUSCULAR HEMOGLOBIN 32.4 pg (27.0-31.0); MEAN CORPUSCULAR HGB CONC 34.1 (31.8-35.4); MEAN CORPUSCULAR VOLUME 95.1 fl (81.0-99.0); MONOCYTES # (AUTO) 0.4 K/uL (0.4-2.0); NEUTROPHILS # (AUTO) 4.1 K/ul (2.0-6.9); NEUTROPHILS % (AUTO) 55.6; PLATELET COUNT 160 10^3/uL (140-440); RED BLOOD COUNT 3.89 10^6/ul (4.20-5.40); WHITE BLOOD COUNT 7.36 K/ul (4.6-10.2)
[2016-12-02 05:09] LABS: ANION GAP 9.1; CALCIUM 8.6 mg/dL (8.2-10.2); CREATININE 0.68 mg/dL (0.60-1.30); POTASSIUM 4.1 mmol/L (3.5-5.10)
[2016-12-02 05:10] LABS: BUN/CREATININE RATIO 11.76
[2016-12-02 05:19] LABS: CREATINE KINASE 34 U/L
[2016-12-02] MEDS: ZANTAC PO SCH (05:35)
--- NOTE | 2016-12-02 09:00 | ECHOSTRESS ---
Date of Exam: 12/02/16 Ordering Physician: HOSPITALIST--JOSE LINDO Reason for Echo: CHEST PAIN, STRESS TEST SESTAMIBI --NO ISCHEMIA M-Mode Normal Adult Results LV Dimensions Normal Adult Results AoV Opening excursions >1.6 LVEDD-base- 3.5-5.8 Ao root dimensions 2.0-3.7 LVESD-base- 3.1-4.6 L. Atrium dimensions 1.9-3.8 Post. Wall thickness 0.8-1.1 IV septum (thickness) 0.7-1.2 Post. Wall excursion 0.72-1.3 Septal motion Systolic motion R. Ventricular cavity 1.5-2.0 LVEF 60% Paradoxical septal wall motion 2-D: NORMAL LEFT VENTRICULAR CONTRACTILITY--RESTING AND POST EXERCISE M-MODE: MV: AV: TV: PV: CHAMBER SIZE: WALL MOTION: NORMAL LEFT VENTRICULAR CONTRACTILITY--RESTING AND POST EXERCISE PERICARDIUM: INTERPRETATION: 1. NORMAL LEFT VENTRICULAR CONTRACTILITY--RESTING AND POST EXERCISE MTDD
--- NOTE | 2016-12-02 09:12 | STECHOSEST ---
Date of Test: 12/02/16 Reason for Exam: CHEST PAIN Ordering Physician: HOSPITALIST--JOSE LINDO Current Medications: NORCO, LOVENOX, LEXAPRO, TORADOL, ATIVAN, LOPRESSOR, NITROSTAT, CREON, ZANTAC Physical Findings: S1, S2, NO S3 Resting EKG: SINUS RHYTHM/N ST-T WAVE NO CHANGES Target Heart Rate: 146/172 STAGE MPH/GRADE HEART RATE BPM BLOOD PRESSURE mmhg RHYTHM S-T SEGMENT UP DOWN SYMPTOMS,COMMENTS At Rest 54 116/60 SR X NONE 1 1.7/10% 120 138/90 SR X NONE 2 2.5/12% 3 3.4/14% 4 4.2/16% 5 5.0/18% Immediately after 136 SR X SHORT OF BREATH Total Time: 4:22 Maximum Heart Rate Reached: 136 Reason for Termination: SHORT OF BREATH 3 MINUTES POST EXERCISE: HR 70 BPM, BP 130/72 MMHG, SR, +/- INTERPRETATION: 97% OXYGEN SATURATION WITH EXERCISE ON ROOM AIR 1. NO EVIDENCE OF ISCHEMIA FROM HEART RATE 54/MINUTE TO 136/MINUTE 2. NO CHEST PAIN OR DISCOMFORT 3. NO ARRHYTHMIAS 4. BLOOD PRESSURE RESPONSE: NORMAL NORMAL LEFT VENTRICULAR CONTRACTILITY--RESTING AND POST EXERCISE SESTAMIBI TO FOLLOW MTDD
--- NOTE | 2016-12-02 09:36 | CONS ---
DATE OF CONSULTATION: 12/01/16 REASON FOR CONSULTATION: Chest pain. HISTORY OF PRESENT ILLNESS: 46-year-old white female was hospitalized through the emergency room with complaint of having chest pain on 11/29/16. The patient's chest pain was precordial, described as tenderness and heaviness in the precordial area sometimes going to the neck. It is mostly without exertion off and on for the past several days. The patient has a lot of stress at home with daughter. The patient has a history of having cardic workup in the past, Dr. Beaulieu had her 24 hour holter which recorded heartbeat up to 170 per minute. REVIEW OF SYSTEMS: CONSTITUTIONAL: No night sweats. No fatigue, malaise, lethargy. No fever or chills. HEENT: Eyes: No visual changes. No eye pain. No eye discharge. ENT: No runny nose. No epistaxis. No sinus pain. No sore throat. No odynophagia. No ear pain. No congestion. RESPIRATORY: No cough, no congestion. No hemoptysis. CARDIOVASCULAR: Chest pain as described which is equivocal for coronary insufficiency. No angina symptoms. No CHF symptoms. No palpitations. No shortness of breath. No PND, no orthopnea. GASTROINTESTINAL: No abdominal pain. No nausea or vomiting. No diarrhea or constipation. No hematemesis. No hematochezia. GENITOURINARY: No urgency. No frequency. No dysuria. No hematuria. No obstructive symptoms. No discharge. No pain. No significant abnormal bleeding. MUSCULOSKELETAL: No musculoskeletal pain. No joint swelling. NEUROLOGICAL: No headache. No neck pain. No syncope. No seizures. No dizziness. PSYCHIATRIC: Not anxious. No depression. No suicidal thoughts. No homicidal thoughts. SKIN: No rash. No lesions. No wounds. ENDOCRINE: No unexplained weight loss. No weight gain. HEMATOLOGIC/LYMPHATIC: No anemia. No purpura. No petechiae. No prolonged or excessive bleeding. No palpable lymph nodes. MEDICATIONS: 1. Lexapro 2. Potassium 3. Ativan 4. Metoprolol 5. Zantac PAST MEDICAL HISTORY: 1. Depression 2. Hypertension ALLERGIES: AMOXICILLIN, CIPRO, ERYTHROMYCIN, SULFA SOCIAL/PERSONAL/FAMILY HISTORY: No alcohol use. Current every day smoker. PHYSICAL EXAMINATION: GENERAL: The patient is oriented to time, place and person. VITAL SIGNS: Temperature 96.9, pulse 65, respiratory rate 20, BP 100/70, pulse 97%. HEENT: Head normocephalic, atraumatic. Eyes: Extraocular muscles are intact. Pupils are equal, round and reactive to light and accommodation. Ears: No lesions. Nose appeared normal. Throat: No exudate or erythema. NECK: Supple. No JVP, no carotid bruit. No lymphadenopathy or thyromegaly. LUNGS: Decreased breath sounds. Clear to auscultation. Percussion note normal. Chest symmetrical. HEART: S1, S2, no S3. No murmurs. No cyanosis or clubbing. PMI not palpable. The patient has platysma on the right upper lid. No ascites. Pulses: Dorsalis pedis and posterior tibial pulses +1 bilaterally. ABDOMEN: Soft. Nontender. Bowel sounds active. No CVA tenderness. No mass felt. EXTREMITIES: No pedal edema. Full range of motion of all extremities, equal. NEUROLOGIC: No focal deficit. Cranial nerves II through XII are grossly intact. No headache, no double vision or headache. SKIN: Not dry. Intact. Turgor - normal. LYMPHATIC: No palpable lymph nodes/no lymphedema. MUSCULOSKELETAL: Normal joints with no swelling. Muscle tone is normal. EKG no acute changes. Telemetry strips, no ST-T wave changes, sinus rhythm. Cardiac markers negative. The patient had echocardiogram done this morning, which showed borderline LVH, normal LV contractility. ASSESSMENT: 1. CHEST PAIN SEEMS TO BE EQUIVOCAL 2. PLATYSMA WITH VERY LIKELY HISTORY OF DYSLIPIDEMIA 3. HYPERTENSION 4. BMI OF 37 5. SMOKING RECOMMENDATION: 1. Educated about coronary artery disease, risk factors and how to modify them. 2. Counseling for smoking done. 3. Will do stress echo/Sestamibi in the morning. So far no evidence of any acute myocardial event 4. Lipid profile still pending. Thanks for the referral, will follow. (This consult was also dictated by nurse practitioner) KASH
--- NOTE | 2016-12-02 09:39 | ECHO2D ---
Date of Exam: 12/01/16 Ordering Physician: HOSPITALIST--JOSE LINDO Reason for Echo: CHEST PAIN M-Mode Normal Adult Results LV Dimensions Normal Adult Results AoV Opening excursions >1.6 >1.6 LVEDD-base- 3.5-5.8 5.1 Ao root dimensions 2.0-3.7 3.4 LVESD-base- 3.1-4.6 L. Atrium dimensions 1.9-3.8 3.4 Post. Wall thickness 0.8-1.1 1.1 IV septum (thickness) 0.7-1.2 1.3 Post. Wall excursion 0.72-1.3 NORMAL Septal motion NORMAL Systolic motion R. Ventricular cavity 1.5-2.0 NORMAL LVEF 60% 49% Paradoxical septal wall motion NORMAL 2-D : 2-D M Mode Echocardiogram was performed using apical four chamber and left parasternal long and short axis views. Mitral, tricuspid and aortic valves appear to be normal. Contractility of the left ventricle seems to be normal, so is the cavity size. Left atrial cavity size and aortic root appear to be normal. There is no pericardial effusion. There is no thrombus noted in the left ventricular or left aortic cavity. No mitral valve prolapse noted. M-MODE: MV: NORMAL AV: NORMAL TV: NORMAL PV: CHAMBER SIZE: NORMAL WALL MOTION: NORMAL PERICARDIUM: NORMAL INTERPRETATION: 1. LEFT VENTRICULAR HYPERTROPHY 2. NORMAL LEFT VENTRICULAR CONTRACTILITY 3. NORMAL VALVES MTDD
[2016-12-02] MEDS: LOVENOX SUBCUT SCH (09:41)
[2016-12-02] MEDS: ASPIRIN EC PO SCH (09:42)
[2016-12-02] MEDS: LOPRESSOR PO SCH (09:42)
[2016-12-02] MEDS: CREON DR 12,000 UNITS CAPSULE PO SCH ×2 (09:42→12:05)
[2016-12-02] MEDS: LEXAPRO PO SCH (09:42)
--- NOTE | 2016-12-02 09:52 | NM ---
EXAM: Myocardial perfusion imaging HISTORY: Chest pain COMPARISON: None. TECHNIQUE: Patient was injected 4 mCi of thallium 201 chloride intravenously while at rest. SPECT i maging of the heart was acquired. The patient was stressed on a treadmill using Tommy protocol and at peak exercise injected 24.9 mCi of Tc99m Sestamibi intravenously. Another SPECT imaging of the h eart was then acquired. Gated cardiac study was also performed. FINDINGS: Post stress study shows normal left ventricular cavity size. Small focal fixed defect is present involving left ventricle apex. Myocardial perfusion is otherwise homogeneous. No evidence of reversible ischemia. Left ventricular ejection fraction is 62%. No definite wall motion abnorma lity is seen. IMPRESSION: 1. SPECT myocardial imaging shows no evidence of reversible ischemia. Small old apical infarct. 2. Normal cardiac systolic function and normal wall motion.
[2016-12-02] MEDS: TORADOL IVP PRN (10:08)
[2016-12-02] MEDS: D5%-NS-KCL 20 MEQ/L IV SOL 1,000 ML IV SCH (12:07)
[2016-12-02] MEDS ORDERED: CREON DR 12,000 UNITS CAPSULE PO SCH (17:00)
[2016-12-02 17:16] VITALS: BP 130/67; TEMP 98.1
[2016-12-02] MEDS ORDERED: ZOFRAN TAB PO PRN (20:16)
[2016-12-02] MEDS ORDERED: ULTRAM PO PRN (20:16)
[2016-12-02] MEDS ORDERED: BENTYL IM SCH (21:00)
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
--- NOTE | 2016-12-03 09:45 | PN ---
DATE OF VISIT: 11/30/16 The patient was alert and responsive at the time I saw her in the morning. She was not in any distress and no significant pain. LUNGS: Clear, except for some diminished breath sounds. HEART: Normal sinus rhythm and not tachycardic. ABDOMEN: Unremarkable. LOWER EXTREMITIES: Posterior tibials were absent. The patient's cardiac enzymes remained normal. We will refer to cardiology. KASH
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
--- NOTE | 2016-12-10 15:26 | CONS ---
DATE OF SERVICE: 12/02/16 CONSULT FOLLOWUP SUBJECTIVE: The patient is a 46 year old white female was hospitalized with chest pain. The patient's chest pain is equivocal. It is mostly non-exertional. Also has tenderness of the left precordial area. REVIEW OF SYSTEMS: CONSTITUTIONAL: No night sweats. No fatigue, malaise, lethargy. No fever or chills. HEENT: Eyes: No visual changes. No eye pain. No eye discharge. ENT: No runny nose. No epistaxis. No sinus pain. No sore throat. No odynophagia. No ear pain. No congestion. RESPIRATORY: No cough, no congestion. No hemoptysis. CARDIOVASCULAR: No angina symptoms. No CHF symptoms. No atypical chest pain for CAD. No palpitations. No shortness of breath. GASTROINTESTINAL: No abdominal pain. No nausea or vomiting. No diarrhea or constipation. No hematemesis. No hematochezia. GENITOURINARY: No urgency. No frequency. No dysuria. No hematuria. No obstructive symptoms. No discharge. No pain. No significant abnormal bleeding. MUSCULOSKELETAL: No musculoskeletal pain. No joint swelling. No arthritis. NEUROLOGICAL: No headache. No neck pain. No syncope. No seizures. No dizziness. PSYCHIATRIC: Not anxious. No depression. No suicidal thoughts. No homicidal thoughts. SKIN: No rash. No lesions. No wounds. ENDOCRINE: No unexplained weight loss. No weight gain. HEMATOLOGIC/LYMPHATIC: No anemia. No purpura. No petechiae. No prolonged or excessive bleeding. No palpable lymph nodes. PHYSICAL EXAMINATION: GENERAL: The patient is oriented to time, place and person. VITAL SIGNS: Temperature 96.3, pulse 58, respiratory rate 16 per minute, blood pressure 193/60 and pulse ox 97%. HEENT: Head normocephalic, atraumatic. Eyes: Extraocular muscles are intact. Pupils are equal, round and reactive to light and accommodation. Ears: No lesions. Nose appeared normal. Throat: No exudate or erythema. NECK: Supple. No JVD, no carotid bruit. No lymphadenopathy or thyromegaly. LUNGS: Decreased breath sound but clear to auscultation. Percussion note normal. Chest symmetrical. HEART: S1, S2, no S3. No murmurs. No cyanosis or clubbing. No ascites. Pulses: Dorsalis pedis and posterior tibial pulses +1 to +2 both sides. ABDOMEN: Soft. Nontender. Bowel sounds active. No CVA tenderness. No mass felt. EXTREMITIES: No edema. Full range of motion of all extremities, equal. NEUROLOGIC: No focal deficit. Cranial nerves II through XII are grossly intact. No headache, no double vision or headache. SKIN: Not dry. Intact. Turgor - normal. LYMPHATIC: No palpable lymph nodes/no lymphedema. MUSCULOSKELETAL: Normal joints with no swelling. Muscle tone is normal. LABS: hgb 12.6, hct 37, WBC 7,000 normal differential, creatinine 0.6, BUN 8, potassium 4.1. ASSESSMENT: 1. Chest pain, etiology unknown 2. Generalized osteoarthritis 3. Hypertension 4. Gastroesophageal reflux disease with history of Abraham's Esophagus RECOMMENDATIONS: 1. The patient had a Dobutamine Stress Echo Sestamibi 2. The patient's stress echo was negative 3. Sestamibi has been reported as normal 4. The patient's lipid profile is acceptable 5. The patient's pain could be coming from Abraham's esophagus with reflux. The patient was explained about these findings and advised to followup with laborer petroleum refinery who is EPHRAIM Lee. 6. The patient is strongly advised to followup with her primary MD. 7. Case discussed with attending. 8. The patient's cardiovascular status is stable 9. The patient's BMI is 37, the patient explained about the diet and advised to lose weight. Also advised exercise program 30-40 minutes a day walking with some weight barring exercise. 10.Advised to followup with Lipid profiles. CONDITION: Stable MTDD
--- NOTE | 2016-12-10 15:27 | CONS ---
The patient was seen on Consultation 12/01/16: Level 5 Discharged on second day 12/02/16: Intermediate MTDD
== END 2016-12-02 20:56 | disposition home or self-care (01) | DRG 313 ==
LOC: ED 20:14 → MEDSURG B 23:40
PROVIDERS: ADMIT General Practice; ATTEND General Practice
DX: R07.89 Other chest pain (principal); K21.9 Gastro-esophageal reflux disease without esophagitis; F32.9 Major depressive disorder, single episode, unspecified; R53.1 Weakness; R61 Generalized hyperhidrosis; F17.200 Nicotine dependence, unspecified, uncomplicated; Z86.73 Personal history of transient ischemic attack (TIA), and cerebral infarction without residual deficits; Z87.19 Personal history of other diseases of the digestive system; Z68.36 Body mass index [BMI] 36.0-36.9, adult; Z86.79 Personal history of other diseases of the circulatory system; Z79.899 Other long term (current) drug therapy
CPT/HCPCS: 36415; 80048; 80053; 80061; 82550; 83036; 83880; 84439; 84443; 84484; 85025; 85379; 93005; 93010; 96361; 96374; 96375; 99284

== ENCOUNTER 2017-03-02 17:22 | Outpatient (CLI) ==
--- NOTE | 2017-03-03 08:42 | DI ---
Exam: Right shoulder three-view. HISTORY: Pain. Findings: Three images of the right shoulder demonstrate no acute fracture or dislocation. There is no osseous erosion or radiodense foreign body. No significant degenerative disease. No focal soft tissue swelling. Impressions: No acute fracture or dislocation involving the right shoulder.
--- NOTE | 2017-03-03 08:44 | DI ---
Exam: Cervical spine complete with obliques. HISTORY: Pain per patient. Findings: Anterior, lateral, open-mouth and bilateral oblique images of the cervical spine are submi tted. These demonstrate mild dextroscoliosis in the cervical spine with no compression fracture or l isthesis. There is multilevel mild degenerative disc and facet arthropathy. The odontoid process ap pears intact and normally centered. The facet joints appear aligned and intact. The osseous neural foramina appear patent. The prevertebral soft tissues appear within normal limits. Impressions: Multilevel mild degenerative disc and facet arthropathy with no compression fracture or listhesis in the cervical spine.
== END 2017-03-02 17:23 | disposition home or self-care (01) ==
LOC: RAD 17:22
PROVIDERS: ATTEND Pain Medicine Interventional Pain Medicine
DX: M25.511 Pain in right shoulder (principal); M47.812 Spondylosis without myelopathy or radiculopathy, cervical region

== ENCOUNTER 2018-01-29 15:54 | Emergency (ER) ==
[2018-01-29 15:59] VITALS: BP 115/79; TEMP 97.3; BMI 38.2
[2018-01-29] MEDS ORDERED: SODIUM CHLORIDE 1,000 ML IV STA (17:52)
[2018-01-29] MEDS ORDERED: TORADOL IVP STA (17:59)
--- NOTE | 2018-01-29 18:00 | ED.PDOC ---
General ED Provider: Dr. GIAN LIN Chief Complaint: Abdominal Pain Stated Complaint: Patient is a 47 year old female who states that she has had left ovarian cyst pain for the past 2 weeks. Pain became worse this Afternoon. States the pain is on the Upper abdomen associated with diarhera. Last meal was 2129 Time Seen by Physician: 17:50 Mode of Arrival: Walk-In Information Source: Patient Exam Limitations: No limitations Nursing and Triage Documentation Reviewed and Agree: Yes Does patient meet sepsis criteria?: No System Inflammatory Response Syndrome: Not Applicable Sepsis Protocol: For patient's 13 years and over: Temp is 96.8 and below OR 101 and greater Pulse >90 BPM Resp >20/minute Acutely Altered Mental Status Are patient's symptoms suggestive of a new infection, such as: -Pneumonia -Skin, Soft Tissue -Endocarditis -UTI -Bone, Joint Infection -Implantable Device -Acute Abdominal Infection -Wound Infection -Meningitis -Blood Stream Catheter Infection -Unknown Review of Systems - Review Of Systems Constitutional: Reports: No symptoms Eyes: Reports: No symptoms Ears, Nose, Mouth, Throat: Reports: No symptoms Respiratory: Reports: No symptoms Cardiac: Reports: No symptoms GI: Reports: Abdominal pain, Nausea : Reports: No symptoms Musculoskeletal: Reports: No symptoms Skin: Reports: No symptoms Neurological: Reports: No symptoms Endocrine: Reports: No symptoms Hematologic/Lymphatic: Reports: No symptoms All Other Systems: Reviewed and Negative Past Medical History - Past Medical History Previously Healthy: Yes Endocrine: Reports: None Cardiovascular: Reports: Hypertension, Other (SUPERVENTRICULAR TACHY) Respiratory: Reports: None Hematological: Reports: None Gastrointestinal: Reports: GERD, Pancreatitis (stone in tissue of pancreatic bile duct, pancreatitis), Other (HIATAL HERNIA, bowel obstructionx3) Genitourinary: Reports: UTI Neuro/Psych: Reports: TIA (MINI STROKES ), Anxiety, Depression Musculoskeletal: Reports: None Cancer: Reports: None Last Menstrual Period: 1997 - Surgical History General Surgical History: Reports: Hysterectomy, Cholecystectomy ( CYST L ADRENAL GLAND) - Family History Family History: Reports: Unknown - Social History Smoking Status: Current every day smoker, Light tobacco smoker Hx Substance Use: No Alcohol Screening: None Physical Exam - Physical Exam Appearance: Ill-appearing, Obese Pain Distress: Severe Eyes: WILFREDO, EOMI, Conjunctiva clear ENT: Ears normal, Nose normal, Oropharynx normal Neck: Supple Respiratory: Airway patent, Breath sounds clear, Breath sounds equal, Respirations nonlabored Cardiovascular: RRR, Pulses normal, No rub, No murmur GI/: Soft, No masses, Bowel sounds normal, No Organomegaly, Tender (mild ) Musculoskeletal: Normal strength, ROM intact, No edema, No calf tenderness Skin: Warm, Dry, Normal color Neurological: Sensation intact, Motor intact, Reflexes intact, Cranial nerves intact, Alert, Oriented Psychiatric: Affect appropriate, Mood appropriate Re-Evaluation - Re-Evaluation Time of Re-Evaluation: 19:20 Status: Improved Pain Level: much better Critical Care Note - Critical Care Note Total Time (mins): 0 Course - Course Hematology/Chemistry: 01/29/18 05:55 01/29/18 05:55 Orders, Labs, Meds: Lab Review 01/29/18 01/29/18 01/29/18 05:55 05:55 19:30 WBC 9.54 RBC 4.34 Hgb 14.2 Hct 41.5 MCV 95.6 MCH 32.7 H MCHC 34.2 RDW Coeff of Claudia 12.4 Plt Count 190 Immature Gran % (Auto) 0.2 Neut % (Auto) 65.0 Lymph % (Auto) 28.6 Williams % (Auto) 3.8 Eos % (Auto) 2.0 Baso % (Auto) 0.4 Immature Gran # (Auto) 0.0 Neut # (Auto) 6.2 Lymph # (Auto) 2.7 Williams # (Auto) 0.4 Eos # (Auto) 0.2 Baso # (Auto) 0.0 Sodium 141 Potassium 4.1 Chloride 108 H Carbon Dioxide 26 Anion Gap 11.1 BUN 9 Creatinine 0.73 Estimated GFR (MDRD) 85.00 BUN/Creatinine Ratio 12.32 Glucose 95 Calcium 9.1 Total Bilirubin 0.5 AST 13 L ALT 13 Alkaline Phosphatase 109 H Total Protein 6.6 Albumin 3.3 L Globulin 3.3 Albumin/Globulin Ratio 1.00 Amylase 30 Lipase 25 Urine Color Yellow Urine Clarity Clear Urine pH 6.0 Ur Specific [place] 1.015 Urine Protein Negative Urine Glucose (UA) Negative Urine Ketones Negative Urine Blood Negative Urine Nitrite Negative Urine Bilirubin Negative Urine Urobilinogen 0.2 Ur Leukocyte Esterase Negative Orders Category Date Time Status AMYLASE Stat LAB 01/29/18 05:55 Completed CBC W/ AUTO DIFF Stat LAB 01/29/18 05:55 Completed COMPREHENSIVE METABOLIC PANEL Stat LAB 01/29/18 05:55 Completed LIPASE Stat LAB 01/29/18 05:55 Completed URINALYSIS C & S IF INDICATED Stat LAB 01/29/18 19:30 Completed Ketorolac Tromethamine [Toradol] MEDS 01/29/18 17:59 Discontinued 30 mg IVP ONCE STA Ondansetron HCl/Pf [Zofran 4 mg/2 ml] MEDS 01/29/18 18:26 Discontinued 4 mg IVP ONCE STA Sodium Chloride 0.9% [Sodium Chloride] 1,000 ml MEDS 01/29/18 17:[address] ABD/PEL WO RENAL STONE PROT Stat RADS 01/29/18 17:52 Completed Medications Discontinued Medications Generic Name Dose Route Start Last Admin Trade Name Freq PRN Reason Stop Dose Admin Sodium Chloride 1,000 mls @ 1,000 mls/hr 01/29/18 17:52 01/29/18 18:31 Sodium Chloride IV 01/29/18 18:51 1,000 mls/hr BOLUS STA Administration Ketorolac Tromethamine 30 mg 01/29/18 17:59 01/29/18 18:36 Toradol IVP 01/29/18 18:00 30 mg ONCE STA Administration Ondansetron HCl 4 mg 01/29/18 18:26 01/29/18 18:33 Zofran 4 Mg/2 Ml IVP 01/29/18 18:27 4 mg ONCE STA Administration Vital Signs: Temp Pulse Resp BP Pulse Ox 01/29/18 15:54 97.3 F L 88 20 115/79 98 Departure - Departure Time of Disposition: 19:42 Disposition: HOME SELF-CARE Discharge Problem: Abdominal pain Instructions: Abdominal Pain (ED) Condition: Stable Pt referred to PMD for follow-up: Yes IPMP verified?: No Additional Instructions: Follow up with PCP in 3-5 days Prescriptions: Meloxicam [Mobic] 7.5 mg PO DAILYWM #20 tablet Allergies/Adverse Reactions: Allergies amoxicillin Adverse Reaction (Verified 01/29/18 16:00) ciprofloxacin [From Cipro] Adverse Reaction (Verified 01/29/18 16:00) ciprofloxacin HCl [From Cipro] Adverse Reaction (Verified 01/29/18 16:00) erythromycin base Adverse Reaction (Verified 01/29/18 16:00) Sulfa (Sulfonamide Antibiotics) Adverse Reaction (Verified 01/29/18 16:00) Home Medications: Ambulatory Orders Meloxicam [Mobic] 7.5 mg PO DAILYWM #20 tablet 01/29/18 Disposition Discussed With: Patient
[2018-01-29] MEDS ORDERED: ZOFRAN 4 MG/2 ML IVP STA (18:26)
--- NOTE | 2018-01-29 18:29 | CT ---
EXAM: CT scan of the abdomen and pelvis without contrast HISTORY: Abdominal pain TECHNIQUE: Helical imaging of the abdomen pelvis was performed without contrast. 3 mm thin axial im ages and coronal and sagittal reconstructions were provided for interpretation. Comparison to 02/08/2017 CT scan of the abdomen and pelvis. FINDINGS: There has been previous cholecystectomy. The liver, spleen, pancreas, and right adrenal g land appear normal. There is stable appearance of a hypodense oval nodule seen within the left adren al gland measuring up to 2.2 cm maximum. The internal Hounsfield units measure approximately -6. Th e small and large bowel loops are normal caliber. There is no free air. There has been previous mecca endectomy. The helical images obtained through the pelvis demonstrate a normal appearance of the rectum, urinary bladder. There is no free fluid seen within the pelvis. No retroperitoneal abnormalities are seen. Lung bases are clear. No lytic or blastic lesions are seen within the osseous structures. IMPRESSION: There is no bowel obstruction or acute inflammatory change seen within the abdomen and p lalo. There is no ureteral obstruction. Previous cholecystectomy and previous appendectomy. Stable appearance of a left adrenal adenoma.
== END 2018-01-29 20:00 | disposition home or self-care (01) ==
LOC: ED 15:54
DX: R10.10 Upper abdominal pain, unspecified (principal); R19.7 Diarrhea, unspecified; F17.210 Nicotine dependence, cigarettes, uncomplicated
CPT/HCPCS: 36415; 74176; 80053; 81001; 82150; 83690; 85025; 99283

== ENCOUNTER 2018-03-28 10:33 | Outpatient (CLI) ==
--- NOTE | 2018-03-28 12:36 | DI ---
Exam: Lumbar spine complete with obliques. HISTORY: Chronic back pain. Comparison: 10/26/2016. Findings: Anterior, lateral, coned-down and bilateral oblique images of the lumbar spine are submitt ed. These demonstrate five [id number], lumbarized vertebrae in anatomic alignment. There is no compression fracture or listhesis. Mild degenerative disease is noted at L5-S1. The bilateral face ts appear aligned and intact. Atherosclerotic plaque is seen. The bowel gas pattern is nondilated. Impressions: Mild to moderate degenerative disease at L5-S1 with no compression fracture or listhesi s.
== END 2018-03-28 10:34 | disposition home or self-care (01) ==
LOC: CAR 10:33
PROVIDERS: ATTEND Preventive Medicine Undersea and Hyperbaric Medicine
DX: K86.1 Other chronic pancreatitis (principal); R10.9 Unspecified abdominal pain; R11.2 Nausea with vomiting, unspecified; M54.5 Low back pain; G89.29 Other chronic pain; I10 Essential (primary) hypertension; E11.9 Type 2 diabetes mellitus without complications; R07.9 Chest pain, unspecified; I47.1 Supraventricular tachycardia
CPT/HCPCS: 36415; 80053; 83690; 85025; 93005; 93010

== ENCOUNTER 2018-07-01 12:54 | Outpatient (CLI) ==
--- NOTE | 2018-07-04 10:57 | HOLTER ---
PATIENT INFORMATION AND COMMENTS Attending Physician: RC LOPEZ MD Indications: PALPITATIONS __ Patient Medications: CREON, HYDROXYZINE, METOPROLOL, CITALOPRAM __ Pre-procedure Summary: Protocol: Standard Heart Rate Started: 07/01/18 1307 Minimum: 57 BPM Weight: 218 LBS Ended: 07/02/18 1307 Maximum: 144 BPM Height: 63" Duration: 24 HOURS Average: 78 BPM _ INTERPRETATIONS/OBSERVATIONS: 1. BASIC RHYTHM: SINUS, RATE 60 BPM TO 140 BPM, AVERAGE 78 BPM 2. RARE PAC/PVC'S, ISOLATED 3. NO ST-T WAVE CHANGES FROM BASELINE 4. NO CORRELATION WITH ACTIVITY LOG MTDD
== END 2018-07-01 12:55 | disposition home or self-care (01) ==
LOC: CAR 12:54
PROVIDERS: ATTEND Internal Medicine Cardiovascular Disease
DX: R00.2 Palpitations (principal)
CPT/HCPCS: 93227

== ENCOUNTER 2018-07-07 14:27 | Outpatient (CLI) ==
--- NOTE | 2018-07-08 07:34 | DI ---
EXAM: Four views of the cervical spine. HISTORY: Degenerative disc disease. TECHNIQUE: AP, lateral, open-mouth and swimmer's lateral views of the cervical spine were obtained. Comparison 03/02/2017. FINDINGS: There is stable appearance of mild to moderate degenerative disc disease and cervical spon dylosis seen from the C3 down to the C6 level. The prevertebral soft tissues are normal. The spinou s processes are intact. No acute fractures are seen. The odontoid process appears intact. IMPRESSION: Stable appearance of mild to moderate degenerative disc disease and cervical spondylosis seen from the C3 down to the C6 level.
--- NOTE | 2018-07-08 07:35 | DI ---
EXAM: Three views of the left shoulder HISTORY: Pain TECHNIQUE: Internal and external AP frontal views of the left shoulder and a lateral view were obtai kacy. FINDINGS: The humeral head is seen in normal position. No acute fractures are seen. The soft tissu es are normal. IMPRESSION: No acute fracture dislocation seen within the left shoulder.
--- NOTE | 2018-07-08 08:36 | DI ---
EXAM: Lumbar spine three view HISTORY: Degenerative disc disease COMPARISON: None TECHNIQUE: Three views lumbar spine were performed FINDINGS: Sacroiliac joints intact. Sacral arcuate intact. Mild rightward curvature lumbar spine. Vertebral bodies normal height. No fracture. Marginal osteophyte formation. Moderate intervertebr al disc space narrowing L5-S1. 2 mm anterolisthesis L5 on S1. Multilevel facet arthrosis. Atheroscl erotic vascular calcification. IMPRESSION: Chronic discogenic degenerative disease and facet arthrosis.
== END 2018-07-07 14:28 | disposition home or self-care (01) ==
LOC: RAD 14:27
PROVIDERS: ATTEND Pain Medicine Interventional Pain Medicine
DX: M51.36 Other intervertebral disc degeneration, lumbar region (principal); M51.37 Other intervertebral disc degeneration, lumbosacral region; M47.816 Spondylosis without myelopathy or radiculopathy, lumbar region; M47.817 Spondylosis without myelopathy or radiculopathy, lumbosacral region; M54.5 Low back pain; M54.2 Cervicalgia; M47.812 Spondylosis without myelopathy or radiculopathy, cervical region; M79.10 Myalgia, unspecified site; M25.512 Pain in left shoulder

== ENCOUNTER 2018-07-11 11:21 | Outpatient (RCR) | END 2018-07-14 23:59 | PROVIDERS: ATTEND Pain Medicine Interventional Pain Medicine | DX: M51.36 Other intervertebral disc degeneration, lumbar region (principal); M48.061 Spinal stenosis, lumbar region without neurogenic claudication; M54.2 Cervicalgia; M25.512 Pain in left shoulder; M54.5 Low back pain; M62.89 Other specified disorders of muscle; M62.81 Muscle weakness (generalized) ==

== ENCOUNTER 2018-08-11 14:00 | Outpatient (RCR) ==
--- NOTE | 2018-07-18 09:30 | RS.OPPTEV2 ---
Date of Note: 07/15/18 Visit #: 1 Number of visits approved by Insurance: pending Date of Evaluation: 07/15/18 Payer Source: Medicaid Surgery Performed?: No Treatment Diagnosis: Lumbar DDD with stenosis, L shld pain, neck pain History of Condition/Mechanism of Injury:: pt report she has had a long hx of LBP begining in 2006 with a fall from a trampoline. pt reports that she has just begun seeing pain management. Prior Level of Function.....Patient was independent with: ADL's, Self Care, Caregiving, Ambulation/Mobility, Community Integration/Access Functional Limitations: Sleep, Self Care, ADL's, Reaching, Pushing, Pulling, Lifting, Carrying, Sitting, Standing, Bending, Squatting, Ambulation, Community Access/Integration Current Subjective/complaints:: pt reports that she is having increased pain today. Reports she is supposed to get injections in the next couple of weeks at pain management. Treatment Side (optional): N/A *Precautions: n/a Medical History Medical History: Hypertension, CVA/TIA (06/2015), Arthritis Smoking Status: Current every day smoker Diagnostic Testing/Imaging:: Lumbar spine x ray 07/07/18: chronic discogenic degenerative disease and facet artrosis. Hx Home Medications: vistaril, celexa, metoprolol. hydrocodone, Patient's Goals: decrease pain Pain Assessment - Pain Description Pain Location: lumbar spine, pelvis, neck, R hip Pain Description: Radiating, Sharp, Aching Current Pain Intensity: 10 Worst Pain Intensity: 10 Other Comments regarding Pain:: reports pain radiates into R hip Functional Outcome Measure Oswestry LBP: 40 - G Codes & Severity Modifier G Codes & Modifier: n/a Source of G Code score: n/a Observation - Observation Posture: Forward Head, Rounded Shoulders, Increased Thoracic Kyphosis Handedness: Right Gait - Gait Pattern General Gait Pattern Observation: No Deviations/Normal General Range of Motion: BUE WFL's. BLE WFL's. cervical ROM WFL's with discomfort with all ROM Muscle Strength: BUE 5/5 with mild discomfort with MMT on L shld flex. BLE hip flex 4/5, knee flex/ext 5/5, ankle Df/PF 5/5 (pt whimpers with all muscle testing c/o pain with all MMT) - ROM Lumbar Flexion: Hand reach to patellae Sidebending to Left: Reach to Mid-thigh Sidebending to Right: Reach to Mid-thigh Lumbar Spine ROM Limitations: Soft Tissue Tightness, Muscle Weakness, Pain Comments: pt c/o pain with all planes of lumbar ROM, pt reports is worse with ext as well as L lat sidebending. - Strength Trunk Extension: 4- Good- Trunk Flexion: 3- Fair- Trunk Lateral Flexion: 3- Fair- - Special Tests SLR Test: Positive Left, Positive Right SI Joint Compression: Positive Comments: Due to pt low pain threshold pt cries with all testing, crying out with min SLR to test hamstring. Palpation Palpation Findings: Tenderness, Muscle Guarding Comments:: pt with tenderness and muscle guarding to lower lumbar/sacral area. pt jumps and cries out loudly with very light palpation to B SI L worse than R. Sensation - Sensation Right Upper Extremity: Intact/Normal Left Upper Extremity: Intact/Normal Right Lower Extremity: Intact/Normal Left Lower Extremity: Intact/Normal Balance - Sitting Balance Static Sitting Balance: Normal Dynamic Sitting Balance: Normal - Standing Balance Static Standing Balance: Normal Dynamic Standing Balance: Normal - Treatment Modality: Electrical Stim Unattended Parameters/Method Applied: IFC x 20 mins at 12 Treatment Area: Lumbar/sacral area Patient Position: Left Sidelying - Heat/Cryotherapy Treatment: Cryotherapy Interventions - Exercise/Activities/Manual Therapy Exercises/Activities: pt performed pelvic tilt x 2 pt unable to tolerate any further ex due to low pain threshold and crying out to only light touch. Manual Therapy: n/a HOME EXERCISE PROGRAM: pt given written HEP including: pelvic tilt, hamstring stretch, knee to chest, isometric hip add - Charges Timed Code Treatment Minutes: 47 Total Treatment Time: 62 Procedures billed for this date of service:: eval med, alissa, CP EVALUATION COMPLEXITY LEVEL EVALUATION COMPLEXITY LEVEL: HISTORY: Medium (OA, HTN, TIA, pain), EXAM OF BODY SYSTEMS: Medium (pain, ROM, strength, muscle tightness), CLINICAL PRESENTATION: Medium, CLINICAL DECISION MAKING: Medium Assessment Assessment: pt very emotional whimpering and crying out with very light palpation. pt with low pain threshold. pt with increased hamstring tightness BLE as well as piriformis tightness. pt with pain to palpation to lower lumbar ketan B SI L worse than R. pt with pain with all Lumbar ROM. Patient Education: Home Exercise Program, Education of Plan of Care Rehab Potential: Good Short Term Goals Goal #1: pt independent with initial HEP Goal to be met by: 07/29/18 Goal #2: pt with improved B hamstring flexibility Goal to be met by: 07/29/18 Goal #3: pt report no radicular pain in R hip Goal to be met by: 07/29/18 Goal #4: Improve lumbar ROM to WFL's Goal to be met by: 07/29/18 [facility] Goals Goal #1: pt rate pain < 7/10 Goal to be met by: 08/12/18 Goal #2: pt report she is able to perform normal daily activities with less pain Goal to be met by: 08/12/18 Goal #3: Hamstring flexibility WFL's Goal to be met by: 08/12/18 Goal #4: pt able to tolerate 10 mins of standing activity Goal to be met by: 08/12/18 Plan - Treatment to be Provided Procedures: Therapeutic Exercises, Neuromuscular Rehab, Manual Therapy, Massage , Patient Education Modalities: Electrical Stimulation, Ultrasound/Phonophoresis, Cryotherapy, Hot Packs, Mechanical Traction - Treatment Plan Frequency: 2 X week Duration: 4 weeks Dates of [facility] Goals: 08/12/18 Expiration date of current Insurance Approval:: pending - Treatment Code (1) Lumbar pain Code(s): M54.5 - LOW BACK PAIN (2) Lumbar degenerative disc disease Code(s): M51.36 - OTHER INTERVERTEBRAL DISC DEGENERATION, LUMBAR REGION (3) Muscle tightness Code(s): M62.89 - OTHER SPECIFIED DISORDERS OF MUSCLE (4) Muscle weakness Code(s): M62.81 - MUSCLE WEAKNESS (GENERALIZED)
--- NOTE | 2018-07-22 16:26 | RS.OPPTDN ---
Subjective Date of Note: 07/22/18 Visit #: 2 Number of visits approved by Insurance: pending Date of Evaluation: 07/15/18 Payer Source: Medicaid Treatment Diagnosis: Lumbar DDD with stenosis, L shld pain, neck pain Current Subjective/complaints:: Patient reports her back pain is not bad today, but her legs are hurting her. States both thighs feel like concrete. *Precautions: n/a Pain Assessment - Pain Description Pain Location: lowback, bilateral thighs Current Pain Intensity: back 3/10, bilateral thighs see below Other Comments regarding Pain:: When asked to rate thigh pain she immediately states "10". When instructed 10/10 is unbearable, for example needing to go to ER, she states pain is an 8/10. She also reports her LE's will go completely numb. When asked if she meant they felt "asleep" but can feel deep pressure, she states "no, I cannot feel myself touching my legs at all". She states this is the entire legs (such as a glove), not a radicular pattern. - Treatment Modality: Electrical Stim Unattended Parameters/Method Applied: [id number] HVGC to 140-155p.v. with 4 large pads cross current to the bilateral lumbar paraspinals with HP prior to EX. Patient Position: Left Sidelying - Heat/Cryotherapy Treatment: Hot Pack (with Estim) Interventions - Exercise/Activities/Manual Therapy Exercises/Activities: Assited single and double knee to chest. Pelvic tilts. Alt hip flexion. Discussion of bug exercise but patient unable to perform. Isomettric hip add with pillow. Paitent unable to perform SLR. Worked on log rolling and supine to sit ABS. Patient education of dx, spinal mechanics, body mechanics, safety with ADL's, and HEP. Discussion of beginning walking program. Patient given copy of new exercises. Total minutes of Exercise: 23mins Manual Therapy: n/a HOME EXERCISE PROGRAM: pt given written HEP including: pelvic tilt, hamstring stretch, knee to chest, isometric hip add - Objective Findings Observations,measurements,etc.: Despite high pain rating in bilateral thighs, patient demos good gait pattern at a moderate pace with no deviation. - Charges Timed Code Treatment Minutes: 23mins Total Treatment Time: 43mins Procedures billed for this date of service:: HP, Estim unattended, EX2 Assessment: Patient demos inconsistency with reports of pain and physical limitation and presentation with ambulation. She needs encouragement and education to become more active and progress with exercise. She becomes interested in planning a walking program as her daughter has been wanting to start. Patient Education: Body/Joint mechanics, Home Exercise Program, Home Safety, Activity Modification Patient demonstrates compliance with HEP?: Yes Short Term Goals Goal #1: pt independent with initial HEP Goal to be met by: 07/29/18 Progress towards Goal:: Progressing Goal #2: pt with improved B hamstring flexibility Goal to be met by: 07/29/18 Progress towards Goal:: Progressing Goal #3: pt report no radicular pain in R hip Goal to be met by: 07/29/18 Goal #4: Improve lumbar ROM to WFL's Goal to be met by: 07/29/18 [facility] Goals Goal #1: pt rate pain < 7/10 Goal to be met by: 08/12/18 Goal #2: pt report she is able to perform normal daily activities with less pain Goal to be met by: 08/12/18 Goal #3: Hamstring flexibility WFL's Goal to be met by: 08/12/18 Goal #4: pt able to tolerate 10 mins of standing activity Goal to be met by: 08/12/18 Plan Dates of Home Therapy Teacher Goals: 08/12/18 Expiration date of current Insurance Approval:: 08/12/18 PLAN: Continue modalities and continue progression of HEP.
--- NOTE | 2018-07-27 15:06 | RS.OPPTDN ---
Subjective Date of Note: 07/26/18 Visit #: 3 Number of visits approved by Insurance: Pending Date of Evaluation: 07/15/18 Payer Source: Medicaid Treatment Diagnosis: Lumbar DDD with stenosis, L shld pain, neck pain Current Subjective/complaints:: Patient reports pain limiting her daily activities. *Precautions: n/a Pain Assessment - Pain Description Pain Location: lowback and LE's Current Pain Intensity: high, does not rate on 0-10 scale - Treatment Modality: Electrical Stim Unattended Parameters/Method Applied: [id number] HVGC to 140 p.v. with 4 large pads cross current to the bilateral lumbar paraspinals with HP prior to EX. Patient Position: Left Sidelying - Heat/Cryotherapy Treatment: Hot Pack (with Estim ) Interventions - Exercise/Activities/Manual Therapy Exercises/Activities: Assited single and double knee to chest. Pelvic tilts. Alt hip flexion. Discussion of bug exercise but patient unable to perform. Isomettric hip add with pillow. Patient performs SLR, but has some difficulty. Again worked on proper log rolling and supine to sit. Education of body mechanics, safety with ADL's, and HEP. Total minutes of Exercise: 24mins Manual Therapy: n/a HOME EXERCISE PROGRAM: pt given written HEP including: pelvic tilt, hamstring stretch, knee to chest, isometric hip add - Charges Timed Code Treatment Minutes: 24mins Total Treatment Time: 48mins Procedures billed for this date of service:: HP, Estim unattended, EX2 Assessment: Patient having difficulty but attempts to work on HEP. Patient Education: Home Exercise Program, Home Safety, Activity Modification Patient demonstrates compliance with HEP?: Yes Short Term Goals Goal #1: pt independent with initial HEP Goal to be met by: 07/29/18 Progress towards Goal:: Progressing Goal #2: pt with improved B hamstring flexibility Goal to be met by: 07/29/18 Progress towards Goal:: Progressing Goal #3: pt report no radicular pain in R hip Goal to be met by: 07/29/18 Goal #4: Improve lumbar ROM to WFL's Goal to be met by: 07/29/18 Display Maker Goals Goal #1: pt rate pain < 7/10 Goal to be met by: 08/12/18 Goal #2: pt report she is able to perform normal daily activities with less pain Goal to be met by: 08/12/18 Goal #3: Hamstring flexibility WFL's Goal to be met by: 08/12/18 Goal #4: pt able to tolerate 10 mins of standing activity Goal to be met by: 08/12/18 Plan Dates of Display Maker Goals: 08/12/18 Expiration date of current Insurance Approval:: 08/12/18 PLAN: Continue modalities and progress exercise to reduce pain and increase functional activity level.
--- NOTE | 2018-07-29 15:45 | RS.CXNS ---
Date of scheduled appointment: 07/29/18 Type: Cancel (Patient called to cancel due to ice. States she is afraid to drive.)
--- NOTE | 2018-08-03 16:02 | RS.OPPTDN ---
Subjective Date of Note: 08/03/18 Visit #: 4 Number of visits approved by Insurance: Pending Date of Evaluation: 07/15/18 Payer Source: Medicaid Treatment Diagnosis: Lumbar DDD with stenosis, L shld pain, neck pain Current Subjective/complaints:: Patient reports pain in the bilateral LE's with exercise. Denies back pain with all exercise except SLR. *Precautions: n/a Pain Assessment - Pain Description Pain Location: Lowback, LE's Current Pain Intensity: mild to mod, does not rate on 0/10 scale - Treatment Modality: Electrical Stim Unattended Parameters/Method Applied: [id number] HVGC to 180p.v. with 4 large pads cross current to the lumbar paraspinals with HP prior to EX. Patient Position: Supine - Heat/Cryotherapy Treatment: Hot Pack (with Estim) Interventions - Exercise/Activities/Manual Therapy Exercises/Activities: Assited single and double knee to chest. Pelvic tilts. Alt hip flexion. Isometric hip add with pillow. SLR. Education of body mechanics, safety with ADL's, and HEP. Patient given copies of new exercises. Total minutes of Exercise: 20mins Manual Therapy: n/a HOME EXERCISE PROGRAM: pt given written HEP including: pelvic tilt, hamstring stretch, knee to chest, isometric hip add - Charges Timed Code Treatment Minutes: 20mins Total Treatment Time: 40mins Procedures billed for this date of service:: HP, Estim unattended, EX Assessment: Patient will need to increase trunk stability exercises as well as begin a walking program. Patient Education: Home Exercise Program Short Term Goals Goal #1: pt independent with initial HEP Goal to be met by: 07/29/18 Progress towards Goal:: Progressing Goal #2: pt with improved B hamstring flexibility Goal to be met by: 07/29/18 Progress towards Goal:: Progressing Goal #3: pt report no radicular pain in R hip Goal to be met by: 07/29/18 Goal #4: Improve lumbar ROM to WFL's Goal to be met by: 07/29/18 Prison Goals Goal #1: pt rate pain < 7/10 Goal to be met by: 08/12/18 Goal #2: pt report she is able to perform normal daily activities with less pain Goal to be met by: 08/12/18 Goal #3: Hamstring flexibility WFL's Goal to be met by: 08/12/18 Goal #4: pt able to tolerate 10 mins of standing activity Goal to be met by: 08/12/18 Plan Dates of Car Unloader Helper Goals: 08/12/18 Expiration date of current Insurance Approval:: 08/12/18 PLAN: Progress exercise and encourage patient to begin walking program to promote strength and a healthier lifestyle.
--- NOTE | 2018-08-05 15:26 | RS.OPPTDN ---
Subjective Date of Note: 08/05/18 Visit #: 5 Number of visits approved by Insurance: 8 Date of Evaluation: 07/15/18 Payer Source: Medicaid Treatment Diagnosis: Lumbar DDD with stenosis, L shld pain, neck pain Current Subjective/complaints:: Patient says she has pain going down her R leg and pain across her low back along waistline. She says it is equal on both sides. She mentions she has "bad arthritis" and she is wanting to return to work badly. Reports treatment helps her, but she is wanting to purchase a home TENS/estim unit for use away from therapy. *Precautions: n/a - Treatment Modality: Electrical Stim Unattended Parameters/Method Applied: hivolt cross current @ 195-230 pk volts 4 large pads x 20 mins at the lumbar paraspinals and superior gluts Patient Position: Right Sidelying - Heat/Cryotherapy Treatment: Hot Pack Interventions - Exercise/Activities/Manual Therapy Exercises/Activities: Assited single and double knee to chest. Assisted piriformis and fig 4. Attempted HS stretches bilaterally, but only able to gena x 1 rep each side. She performs pillow squeezes and isometric hip flexion/abd x 5. Total minutes of Exercise: 12 Manual Therapy: n/a HOME EXERCISE PROGRAM: pt given written HEP including: pelvic tilt, hamstring stretch, knee to chest, isometric hip add - Charges Timed Code Treatment Minutes: 12 Total Treatment Time: 32 Procedures billed for this date of service:: hp, estim (un), ex Assessment: Patient presents with moderate pain level to the lumbar region as well as radiating pain to the R LE to foot. She has numbness to both hands. She has difficulty gena therex today and bed mobs from supine to sit. Required min A to CGA to get to EOB. Patient Education: Education of diagnosis, Body/Joint mechanics, Home Exercise Program Short Term Goals Goal #1: pt independent with initial HEP Goal to be met by: 07/29/18 Progress towards Goal:: Progressing Goal #2: pt with improved B hamstring flexibility Goal to be met by: 07/29/18 Progress towards Goal:: Progressing Goal #3: pt report no radicular pain in R hip Goal to be met by: 07/29/18 Goal #4: Improve lumbar ROM to WFL's Goal to be met by: 07/29/18 Electrician Third Goals Goal #1: pt rate pain < 7/10 Goal to be met by: 08/12/18 Goal #2: pt report she is able to perform normal daily activities with less pain Goal to be met by: 08/12/18 Goal #3: Hamstring flexibility WFL's Goal to be met by: 08/12/18 Goal #4: pt able to tolerate 10 mins of standing activity Goal to be met by: 08/12/18 Plan Dates of Electrician Third Goals: 08/12/18 Expiration date of current Insurance Approval:: 08/12/18 PLAN: Patient to continue with modalities and therex x 1 more week
--- NOTE | 2018-08-09 16:27 | RS.CXNS ---
Date of scheduled appointment: 08/09/18 Type: Cancel (Patient calls to cancel appointment due to being sick.)
--- NOTE | 2018-08-11 16:24 | RS.OPPTDN ---
Subjective Date of Note: 08/11/18 Visit #: 6 Number of visits approved by Insurance: Pending Date of Evaluation: 07/15/18 Payer Source: Medicaid Treatment Diagnosis: Lumbar DDD with stenosis, L shld pain, neck pain Current Subjective/complaints:: Patient reports only minimal changes during course of treatment, but no significant improvement in pain overall. *Precautions: n/a Pain Assessment - Pain Description Pain Location: lowback Current Pain Intensity: 8/10 - Treatment Modality: Electrical Stim Unattended Parameters/Method Applied: [id number] HVGC to 175p.v. with 4 pads cross current to the bilateral lumbar paraspinals prior to EX. Patient Position: Right Sidelying - Heat/Cryotherapy Treatment: Hot Pack ([id number] with Estim ) Interventions - Exercise/Activities/Manual Therapy Exercises/Activities: Patient assisted with and performs independent hamstring stretch, SKTC, DKTC. Assisted piriformis and fig 4. Isometric hip add and isometric hip flexion. SLR. Pain with pelvic tilt. Bridging. Patient education of dx, body mechanics, safety with daily activities, and HEP. Total minutes of Exercise: 26mins Manual Therapy: n/a HOME EXERCISE PROGRAM: pt given written HEP including: pelvic tilt, hamstring stretch, knee to chest, isometric hip add, bridging, SLR - Charges Timed Code Treatment Minutes: 26mins Total Treatment Time: 46mins Procedures billed for this date of service:: HP, Estim unattended, EX2 Assessment: Patient reporting no significant improvement in back pain. She will need to continue HEP and return to physician for a follow-up appointment. Patient Education: Body/Joint mechanics, Home Exercise Program, Home Safety, Activity Modification, Education of Plan of Care Patient demonstrates compliance with HEP?: Yes Short Term Goals Goal #1: pt independent with initial HEP Goal to be met by: 07/29/18 Progress towards Goal:: Met Goal #2: pt with improved B hamstring flexibility Goal to be met by: 07/29/18 Progress towards Goal:: Progressing Goal #3: pt report no radicular pain in R hip Goal to be met by: 07/29/18 Progress towards Goal:: Not Met Goal #4: Improve lumbar ROM to WFL's Goal to be met by: 07/29/18 Progress towards Goal:: Progressing Stranner Goals Goal #1: pt rate pain < 7/10 Goal to be met by: 08/12/18 Progress towards goal: Not Met Goal #2: pt report she is able to perform normal daily activities with less pain Goal to be met by: 08/12/18 Progress towards goal: Not Met Goal #3: Hamstring flexibility WFL's Goal to be met by: 08/12/18 Progress towards goal: Not Met Goal #4: pt able to tolerate 10 mins of standing activity Goal to be met by: 08/12/18 Progress towards goal: Not Met Plan Dates of Shelter Goals: 08/12/18 Expiration date of current Insurance Approval:: 08/12/18 PLAN: Discharge with HEP.
--- NOTE | 2018-08-11 16:26 | RS.QUICKDC ---
Discharge from PT Date of Discharge: 08/11/18 Number of Visits: 6 Reason for Discharge: Patient reported only minimal changes with treatment and exercise. she stated no significant change overall. She only met one treatment goal. Patient instructed to continue HEP. Discharge due to lack of consistent progress.
== END 2018-08-11 23:59 ==
PROVIDERS: ATTEND Pain Medicine Interventional Pain Medicine
DX: M51.36 Other intervertebral disc degeneration, lumbar region (principal); M48.061 Spinal stenosis, lumbar region without neurogenic claudication; M25.512 Pain in left shoulder; M54.2 Cervicalgia; M54.5 Low back pain; M62.89 Other specified disorders of muscle; M62.81 Muscle weakness (generalized)

== ENCOUNTER 2018-09-29 16:39 | Emergency (ER) ==
[2018-09-29 16:54] VITALS: BP 116/89; TEMP 98.1; BMI 40.4
--- NOTE | 2018-09-29 17:05 | ED.PDOC ---
General ED Provider: Dr. TEJAL MARTINEZ Chief Complaint: Abdominal Pain Stated Complaint: Abdominal pain 1 week; diarrhea X4 today and nausea/dry heaving today. Time Seen by Physician: 17:59 Mode of Arrival: Walk-In Information Source: Patient Primary Care Provider: BINDU PATTON JR Nursing and Triage Documentation Reviewed and Agree: Yes Does patient meet sepsis criteria?: No System Inflammatory Response Syndrome: Not Applicable Sepsis Protocol: For patient's 13 years and over: Temp is 96.8 and below OR 101 and greater Pulse >90 BPM Resp >20/minute Acutely Altered Mental Status Are patient's symptoms suggestive of a new infection, such as: -Pneumonia -Skin, Soft Tissue -Endocarditis -UTI -Bone, Joint Infection -Implantable Device -Acute Abdominal Infection -Wound Infection -Meningitis -Blood Stream Catheter Infection -Unknown Review of Systems - Review Of Systems Constitutional: Reports: Malaise, Weakness Respiratory: Reports: No symptoms Cardiac: Reports: No symptoms GI: Reports: Abdominal pain (lower R and L quadrant cramping back and forth since last night), Diarrhea (Since last night - X 4), Vomiting (Dry heaving today) : Reports: No symptoms Skin: Reports: No symptoms All Other Systems: Reviewed and Negative Past Medical History - Past Medical History Previously Healthy: Yes Endocrine: Reports: None Cardiovascular: Reports: Hypertension, Other (SUPERVENTRICULAR TACHY) Respiratory: Reports: None Hematological: Reports: None Gastrointestinal: Reports: GERD, Pancreatitis (stone in tissue of pancreatic bile duct, pancreatitis), Other (HIATAL HERNIA, bowel obstructionx3) Genitourinary: Reports: UTI Neuro/Psych: Reports: TIA (MINI STROKES ), Anxiety, Depression Musculoskeletal: Reports: None Cancer: Reports: None Last Menstrual Period: hysterectomy - Surgical History General Surgical History: Reports: Hysterectomy, Cholecystectomy ( CYST L ADRENAL GLAND) - Family History Family History: Reports: Unknown - Social History Smoking Status: Current every day smoker, Light tobacco smoker Hx Substance Use: No Alcohol Screening: None Physical Exam - Physical Exam Appearance: Ill-appearing Ill-appearing: Mild Pain Distress: Moderate (Lower abdominal cramping pain bilaterally) Eyes: Conjunctiva clear ENT: Oropharynx normal Neck: Supple Respiratory: Airway patent, Breath sounds clear, Breath sounds equal, Respirations nonlabored Cardiovascular: RRR GI/: Soft, Tender (mild tenderness with abdominal palpation; soft) Musculoskeletal: Normal strength, ROM intact Skin: Warm, Dry, Normal color Neurological: Sensation intact, Motor intact Psychiatric: Affect appropriate, Mood appropriate Critical Care Note - Critical Care Note Total Time (mins): 20 Comments: Review history, exam, labs (CBC, CMP, UA - check [place] LIGHT TECHNICIAN - intentional OD history recently) Course - Course Hematology/Chemistry: 09/29/18 17:45 09/29/18 17:45 Orders, Labs, Meds: Lab Review 09/29/18 09/29/18 09/29/18 17:17 17:45 17:45 WBC 11.04 H RBC 4.50 Hgb 14.7 Hct 43.6 MCV 96.9 MCH 32.7 H MCHC 33.7 RDW Coeff of Claudia 12.9 Plt Count 239 Immature Gran % (Auto) 0.5 Neut % (Auto) 74.7 Lymph % (Auto) 19.1 [place] % (Auto) 3.8 Eos % (Auto) 1.5 Baso % (Auto) 0.4 Immature Gran # (Auto) 0.1 Neut # (Auto) 8.3 H Lymph # (Auto) 2.1 [place] # (Auto) 0.4 Eos # (Auto) 0.2 Baso # (Auto) 0.0 Sodium 137.7 Potassium 4.10 Chloride 106.2 Carbon Dioxide 24.8 Anion Gap 10.80 BUN 11.6 Creatinine 0.75 Estimated GFR (MDRD) 82.00 BUN/Creatinine Ratio 15.46 Glucose 101.3 Calcium 9.05 Total Bilirubin 0.63 AST 32.7 ALT 39.7 H Alkaline Phosphatase 101.5 Total Protein 6.97 Albumin 4.34 Globulin 2.63 Albumin/Globulin Ratio 1.65 Lipase 116.8 Urine Color Yellow Urine Clarity Clear Urine pH 5.5 Ur Specific [place] 1.025 Urine Protein Negative Urine Glucose (UA) Negative Urine Ketones Negative Urine Blood Negative Urine Nitrite Negative Urine Bilirubin Negative Urine Urobilinogen 0.2 Ur Leukocyte Esterase Negative Orders Category Date Time Status CBC W/ AUTO DIFF Stat LAB 09/29/18 17:45 Completed COMPREHENSIVE METABOLIC PANEL Stat LAB 09/29/18 17:45 Completed LIPASE Stat LAB 09/29/18 17:45 Completed URINALYSIS C & S IF INDICATED Stat LAB 09/29/18 17:17 Completed Ondansetron HCl/Pf [Zofran 4 mg/2 ml] MEDS 04/18/19 17:58 Discontinued 4 mg IVP ONCE STA Sodium Chloride 0.9% [Sodium Chloride] 1,000 ml MEDS 09/29/18 17:57 Active IV BOLUS Tramadol HCl [Ultram] MEDS 09/29/18 18:48 Stat 50 mg PO ONCE STA Medications Generic Name Dose Route Start Last Admin Trade Name Freq PRN Reason Stop Dose Admin Sodium Chloride 1,000 mls @ 1,000 mls/hr 09/29/18 17:57 09/29/18 18:33 Sodium Chloride IV 09/29/18 18:56 1,000 mls/hr BOLUS STA Administration Discontinued Medications Generic Name Dose Route Start Last Admin Trade Name Freq PRN Reason Stop Dose Admin Ondansetron HCl 4 mg 09/29/18 17:58 09/29/18 18:33 Zofran 4 Mg/2 Ml IVP 09/29/18 17:59 4 mg ONCE STA Administration Vital Signs: Temp Pulse Resp BP Pulse Ox 09/29/18 16:40 98.1 F 122 H 20 116/89 97 Departure - Departure Time of Disposition: 18:45 Disposition: HOME SELF-CARE Discharge Problem: Gastroenteritis Instructions: Gastroenteritis (ED) Condition: Stable Pt referred to PMD for follow-up: Yes (Follow up with primary care) IPMP verified?: Yes (No CS substances recorded) Additional Instructions: Small amounts of clear liquids (including jello/jello water) only next 12 hours ; advance diet as tolerated thereafter. Keep your appointment for MRI scheduled as you have advised for this weekend. Follow up with primary care provider; return to ER if worsening cramping, vomiting and fever in the next 24 hours. Prescriptions: Ondansetron [Zofran Odt] 4 mg PO Q6HR PRN #10 tab.rapdis PRN Reason: Nausea / Vomiting Allergies/Adverse Reactions: Allergies amoxicillin Adverse Reaction (Verified 09/29/18 16:54) cauliflower Adverse Reaction (Verified 09/29/18 16:54) ciprofloxacin [From Cipro] Adverse Reaction (Verified 09/29/18 16:54) ciprofloxacin HCl [From Cipro] Adverse Reaction (Verified 09/29/18 16:54) erythromycin base Adverse Reaction (Verified 09/29/18 16:54) Sulfa (Sulfonamide Antibiotics) Adverse Reaction (Verified 09/29/18 16:54) Home Medications: Ambulatory Orders Aripiprazole [Abilify] 40 mg PO DAILY 09/29/18 Citalopram Hydrobromide [Celexa] 20 mg PO DAILY 09/29/18 Hydrocodone/Acetaminophen [Hydrocodon-Acetaminophen 5-325] 1 each PO BID Hydroxyzine HCl [Atarax] 50 mg PO TID 09/29/18 Lipase/Protease/Amylase [Sadia Hinton 12,000 Units Capsule] 1 cap PO QID 09/29/18 Ondansetron [Zofran Odt] 4 mg PO Q6HR PRN #10 tab.rapdis 09/29/18
[2018-09-29] MEDS ORDERED: SODIUM CHLORIDE 1,000 ML IV STA (17:57)
[2018-09-29] MEDS ORDERED: ZOFRAN 4 MG/2 ML IVP STA (17:58)
[2018-09-29] MEDS ORDERED: ULTRAM PO STA (18:48)
== END 2018-09-29 19:30 | disposition home or self-care (01) ==
LOC: ED 16:39
DX: K52.9 Noninfective gastroenteritis and colitis, unspecified (principal); F17.210 Nicotine dependence, cigarettes, uncomplicated; I10 Essential (primary) hypertension; Z87.19 Personal history of other diseases of the digestive system; Z86.73 Personal history of transient ischemic attack (TIA), and cerebral infarction without residual deficits; Z87.440 Personal history of urinary (tract) infections
CPT/HCPCS: 36415; 80053; 81001; 83690; 85025; 96361; 96374; 96375; 99283

== ENCOUNTER 2018-11-12 16:11 | Emergency (ER) ==
[2018-11-12 16:16] VITALS: BP 121/92; TEMP 98; BMI 42.0
[2018-11-12] MEDS ORDERED: LIDOCAINE HCL 1% SDV IM STA (16:31)
[2018-11-12] MEDS ORDERED: CLEOCIN PO STA (16:31)
[2018-11-12] MEDS ORDERED: ROCEPHIN IM STA (16:31)
--- NOTE | 2018-11-12 17:20 | ED.PDOC ---
General ED Provider: Dr. ELVIS CROCKETT Chief Complaint: Sore Throat Stated Complaint: sore throat Time Seen by Physician: 16:18 Mode of Arrival: Walk-In Information Source: Patient Exam Limitations: No limitations Primary Care Provider: BINDU PATTON JR Nursing and Triage Documentation Reviewed and Agree: Yes Does patient meet sepsis criteria?: No System Inflammatory Response Syndrome: Not Applicable Sepsis Protocol: For patient's 13 years and over: Temp is 96.8 and below OR 101 and greater Pulse >90 BPM Resp >20/minute Acutely Altered Mental Status Are patient's symptoms suggestive of a new infection, such as: -Pneumonia -Skin, Soft Tissue -Endocarditis -UTI -Bone, Joint Infection -Implantable Device -Acute Abdominal Infection -Wound Infection -Meningitis -Blood Stream Catheter Infection -Unknown EENT Complaint Exam - Throat Complaint/Exam Onset/Duration: 1 day Symptoms Are: Still present Timimg: Constant Initial Severity: Moderate Current Severity: Moderate Aggravating: Reports: Eating Alleviating: Reports: None Associated Signs and Symptoms: Reports: Cough, Nasal congestion. Denies: Fever , Dysphagia, Drooling, Foreign body sensation, Chills, Wheezing, Hoarseness, Sinus discomfort, Difficulty breathing, Lethargy, Irritability, Decreased activity, Vomiting, Diarrhea, Decreased hearing, Ear drainage Uvula Midline: Yes Charity-tonsillar Fluctuence: No Scarlatinaform Rash Present: No Lesions: Absent: Lip, Gums, Tongue, Buccal Mucosa, Pharynx Exanthem: Absent: Lip, Gums, Tongue, Buccal Mucosa, Pharynx Vesicles: Absent: Lip, Gums, Tongue, Buccal Mucosa, Pharynx Stridor Present: No Sinus Tenderness Present: No Tonsillar Hypertrophy Present: No Tonsillar Exudate Present: Yes (bilateral) Charity-tonsillar Swelling Present: No Adenopathy Present: No Splenomegaly Present: No Differential Diagnoses: Pharyngitis Review of Systems - Review Of Systems Constitutional: Reports: No symptoms Eyes: Reports: No symptoms Ears, Nose, Mouth, Throat: Reports: Throat pain Respiratory: Reports: No symptoms Cardiac: Reports: No symptoms GI: Reports: No symptoms : Reports: No symptoms Musculoskeletal: Reports: No symptoms Skin: Reports: No symptoms Neurological: Reports: No symptoms Endocrine: Reports: No symptoms Hematologic/Lymphatic: Reports: No symptoms All Other Systems: Reviewed and Negative Past Medical History - Past Medical History Previously Healthy: Yes Endocrine: Reports: None Cardiovascular: Reports: Hypertension, Other (SUPERVENTRICULAR TACHY) Respiratory: Reports: None Hematological: Reports: None Gastrointestinal: Reports: GERD, Pancreatitis (stone in tissue of pancreatic bile duct, pancreatitis), Other (HIATAL HERNIA, bowel obstructionx3) Genitourinary: Reports: UTI Neuro/Psych: Reports: TIA (MINI STROKES ), Anxiety, Depression Musculoskeletal: Reports: None Cancer: Reports: None Last Menstrual Period: N/A - Surgical History General Surgical History: Reports: Hysterectomy, Cholecystectomy ( CYST L ADRENAL GLAND) - Family History Family History: Reports: Unknown - Social History Smoking Status: Current every day smoker, Light tobacco smoker Hx Substance Use: No Alcohol Screening: None Physical Exam - Physical Exam Appearance: Well-appearing, No pain distress, Well-nourished Eyes: WILFREDO, EOMI, Conjunctiva clear ENT: Erythema, Exudate Respiratory: Airway patent, Breath sounds clear, Breath sounds equal, Respirations nonlabored Cardiovascular: RRR, Pulses normal, No rub, No murmur GI/: Soft, Nontender, No masses, Bowel sounds normal, No Organomegaly Musculoskeletal: Normal strength, ROM intact, No edema, No calf tenderness Skin: Warm, Dry, Normal color Neurological: Sensation intact, Motor intact, Reflexes intact, Cranial nerves intact, Alert, Oriented Psychiatric: Affect appropriate, Mood appropriate Critical Care Note - Critical Care Note Total Time (mins): 0 Course - Course Orders, Labs, Meds: Orders Category Date Time Status RAPID STREP SCREEN [MOLECULAR GROUP A STREP] Stat LAB 11/12/18 16:20 Completed Ceftriaxone Sodium [Rocephin] MEDS 11/12/18 16:31 Discontinued 1 gm IM ONCE STA Clindamycin HCl [Cleocin] MEDS 11/12/18 16:31 Discontinued 300 mg PO ONCE STA Lidocaine HCl/Pf [Lidocaine HCl 1% Sdv] MEDS 11/12/18 16:31 Discontinued 2.1 ml IM ONCE STA Medications Discontinued Medications Generic Name Dose Route Start Last Admin Trade Name Willisq PRN Reason Stop Dose Admin Ceftriaxone Sodium 1 gm 11/12/18 16:31 11/12/18 16:44 Rocephin IM 11/12/18 16:32 1 gm ONCE STA Administration Clindamycin HCl 300 mg 11/12/18 16:31 11/12/18 16:44 Cleocin PO 11/12/18 16:32 300 mg ONCE STA Administration Lidocaine HCl 2.1 ml 11/12/18 16:31 11/12/18 16:45 Lidocaine Hcl 1% Sdv IM 11/12/18 16:32 2.1 ml ONCE STA Administration Vital Signs: Temp Pulse Resp BP Pulse Ox 11/12/18 16:13 98.0 F 98 H 20 121/92 H 98 Departure - Departure Time of Disposition: 17:19 Disposition: HOME SELF-CARE Discharge Problem: Pharyngitis Qualifiers: Pharyngitis/tonsillitis etiology: unspecified etiology Qualified Code(s): J02.9 - Acute pharyngitis, unspecified Instructions: Pharyngitis (ED), Strep Throat (DC) Condition: Good Pt referred to PMD for follow-up: Yes IPMP verified?: No Additional Instructions: Please call your Family Physician as soon as possible to schedule a follow-up appointment. Allergies/Adverse Reactions: Allergies amoxicillin Adverse Reaction (Verified 11/12/18 16:12) cauliflower Adverse Reaction (Verified 11/12/18 16:12) ciprofloxacin [From Cipro] Adverse Reaction (Verified 11/12/18 16:12) ciprofloxacin HCl [From Cipro] Adverse Reaction (Verified 11/12/18 16:12) erythromycin base Adverse Reaction (Verified 11/12/18 16:12) Sulfa (Sulfonamide Antibiotics) Adverse Reaction (Verified 11/12/18 16:12) Home Medications: Ambulatory Orders Aripiprazole [Abilify] 40 mg PO DAILY 09/29/18 Citalopram Hydrobromide [Celexa] 20 mg PO DAILY 09/29/18 Hydrocodone/Acetaminophen [Hydrocodon-Acetaminophen 5-325] 1 each PO BID Hydroxyzine HCl [Atarax] 50 mg PO TID 09/29/18 Lipase/Protease/Amylase [Creon Dr 12,000 Units Capsule] 1 cap PO QID 09/29/18
== END 2018-11-12 17:22 | disposition home or self-care (01) ==
LOC: ED 16:11
DX: J02.9 Acute pharyngitis, unspecified (principal); F17.210 Nicotine dependence, cigarettes, uncomplicated
CPT/HCPCS: 87651; 96372; 99282

== ENCOUNTER 2018-11-23 08:23 | Outpatient (CLI) | END 2018-11-23 08:24 | disposition home or self-care (01) | LOC: LAB 08:23 | PROVIDERS: ATTEND Preventive Medicine Undersea and Hyperbaric Medicine | DX: R53.83 Other fatigue (principal) | CPT/HCPCS: 36415; 80053; 80061; 83036 ==

== ENCOUNTER 2018-12-02 19:46 | Emergency (ER) ==
[2018-12-02 19:54] VITALS: BP 114/81; TEMP 97; BMI 41.8
--- NOTE | 2018-12-02 20:26 | DI ---
EXAM: Four views of the right knee HISTORY: Trauma. COMPARISON: None FINDINGS: Medial and lateral compartments are normal. There is no lytic or blastic lesion. There is no periosteal reaction. Patella is normal in position and appearance. IMPRESSION: No acute abnormality of the right knee.
[2018-12-02] MEDS ORDERED: NORCO 7.5-325 PO STA (20:33)
--- NOTE | 2018-12-02 20:36 | ED.PDOC ---
General ED Provider: Dr. JERRELL LECHUGA-ER Chief Complaint: Knee Pain/Injury Stated Complaint: i hurt my knee Time Seen by Physician: 19:50 Mode of Arrival: Wheelchair Information Source: Patient Exam Limitations: No limitations Primary Care Provider: BINDU PATTON JR Nursing and Triage Documentation Reviewed and Agree: Yes Does patient meet sepsis criteria?: No System Inflammatory Response Syndrome: Not Applicable Sepsis Protocol: For patient's 13 years and over: Temp is 96.8 and below OR 101 and greater Pulse >90 BPM Resp >20/minute Acutely Altered Mental Status Are patient's symptoms suggestive of a new infection, such as: -Pneumonia -Skin, Soft Tissue -Endocarditis -UTI -Bone, Joint Infection -Implantable Device -Acute Abdominal Infection -Wound Infection -Meningitis -Blood Stream Catheter Infection -Unknown Musculoskeletal Complaint Exam - Knee Pain Complaint/Exam Mechanism of Injury: Reports: Trauma Onset/Duration: 30 m9in Symptoms Are: Still present Onset of Pain: Reports: Immediate Initial Severity: Mild Current Severity: Moderate Location: Reports: Discrete Character: Reports: Dull, Aching Alleviating: Reports: Rest Aggravating: Reports: Movement, Weight bearing, Prolonged standing Associated Signs and Symptoms: Denies: Swelling, Redness, Bruising, Fever, Weakness, Numbness, Tingling Able to Bear Weight: No Knee Findings: Present: Swelling, Tenderness Dennis Test Positive: No Nicho Test Positive: No Differential Diagnoses: Internal Derangement Review of Systems - Review Of Systems Constitutional: Reports: No symptoms Eyes: Reports: No symptoms Ears, Nose, Mouth, Throat: Reports: No symptoms Respiratory: Reports: No symptoms Cardiac: Reports: No symptoms GI: Reports: No symptoms, Other : Reports: No symptoms Musculoskeletal: Reports: Joint pain, Muscle pain Skin: Reports: No symptoms Neurological: Reports: No symptoms Endocrine: Reports: No symptoms Hematologic/Lymphatic: Reports: No symptoms All Other Systems: Reviewed and Negative Past Medical History - Past Medical History Previously Healthy: Yes Endocrine: Reports: None Cardiovascular: Reports: Hypertension, Other (SUPERVENTRICULAR TACHY) Respiratory: Reports: None Hematological: Reports: None Gastrointestinal: Reports: GERD, Pancreatitis (stone in tissue of pancreatic bile duct, pancreatitis), Other (HIATAL HERNIA, bowel obstructionx3) Genitourinary: Reports: UTI Neuro/Psych: Reports: TIA (MINI STROKES ), Anxiety, Depression Musculoskeletal: Reports: None Cancer: Reports: None Last Menstrual Period: 1997 - Surgical History General Surgical History: Reports: Hysterectomy, Cholecystectomy ( CYST L ADRENAL GLAND) - Family History Family History: Reports: Unknown - Social History Smoking Status: Current every day smoker Hx Substance Use: No Alcohol Screening: None - Immunizations Tetanus Shot up to Date: Yes Physical Exam - Physical Exam Appearance: Well-appearing, No pain distress, Well-nourished Eyes: WILFREDO ENT: Ears normal, Nose normal, Oropharynx normal Neck: Supple Respiratory: Airway patent, Breath sounds clear, Breath sounds equal, Respirations nonlabored Cardiovascular: RRR GI/: Soft, Nontender, No masses, Bowel sounds normal, No Organomegaly Musculoskeletal: Limited ROM Skin: Warm, Dry, Normal color Neurological: Sensation intact, Motor intact, Reflexes intact, Cranial nerves intact, Alert, Oriented Psychiatric: Affect appropriate, Mood appropriate Interpretation - Radiology Interpretation Radiology Interpretation By: Radiologist Radiology Results: Negative Critical Care Note - Critical Care Note Total Time (mins): 0 Course - Course Orders, Labs, Meds: Orders Category Date Time Status CRUTCHES [ED CRUTCHES] .ONCE EMERGENCY 12/02/18 20:32 Active ED SPLINT APPLICATION .ONCE EMERGENCY 12/02/18 20:32 Active Hydrocodone Bit/Acetaminophen [[place] 7.5-325] MEDS 12/02/18 20:33 Stat 1 tab PO ONCE STA KNEE, RIGHT 4 VIEWS Stat RADS 12/02/18 19:55 Completed Medications Generic Name Dose Route Start Last Admin Trade Name Freq PRN Reason Stop Dose Admin Hydrocodone Bitart/Acetaminophen 1 tab 12/02/18 20:33 [place] 7.5-325 PO 12/02/18 20:34 ONCE STA Vital Signs: Temp Pulse Resp BP Pulse Ox 12/02/18 19:46 97.0 F L 67 16 114/81 97 Departure - Departure Time of Disposition: 20:35 Disposition: HOME SELF-CARE Discharge Problem: Injury of knee Instructions: Knee Sprain (ED) Condition: Good Pt referred to PMD for follow-up: Yes IPMP verified?: No Additional Instructions: stay in immobilizer and use crutches---ice3---f/u with pcp for mri or ortho referral Allergies/Adverse Reactions: Allergies amoxicillin Adverse Reaction (Verified 12/02/18 19:54) cauliflower Adverse Reaction (Verified 12/02/18 19:54) ciprofloxacin [From Cipro] Adverse Reaction (Verified 12/02/18 19:54) ciprofloxacin HCl [From Cipro] Adverse Reaction (Verified 12/02/18 19:54) erythromycin base Adverse Reaction (Verified 12/02/18 19:54) Sulfa (Sulfonamide Antibiotics) Adverse Reaction (Verified 12/02/18 19:54) Home Medications: Ambulatory Orders Aripiprazole [Abilify] 40 mg PO DAILY 09/29/18 Citalopram Hydrobromide [Celexa] 20 mg PO DAILY 09/29/18 Hydrocodone/Acetaminophen [Hydrocodon-Acetaminophen 5-325] 1 each PO BID Hydroxyzine HCl [Atarax] 50 mg PO TID 09/29/18 Lipase/Protease/Amylase [Creon Dr 12,000 Units Capsule] 1 cap PO QID 09/29/18 Clindamycin HCl 300 mg PO Q8HR #30 capsule 11/12/18 Metoprolol Tartrate 25 mg PO BID 12/02/18 Disposition Discussed With: Patient
== END 2018-12-02 21:18 | disposition home or self-care (01) ==
LOC: ED 19:46
DX: S89.91XA Unspecified injury of right lower leg, initial encounter (principal); F17.210 Nicotine dependence, cigarettes, uncomplicated
CPT/HCPCS: 99282

== ENCOUNTER 2019-03-22 22:16 | Observation (INO) ==
[2019-03-22] MEDS ORDERED: SOLU-MEDROL 125 MG IVP STA (22:32)
[2019-03-22] MEDS ORDERED: DUONEB NEB STA (22:33)
[2019-03-22] MEDS ORDERED: XOPENEX 1.25 MG NEB STA (22:33)
[2019-03-22] MEDS ORDERED: MORPHINE 2 MG/ML SYRINGE IVP STA (23:06)
[2019-03-22] MEDS ORDERED: DILAUDID 1 MG/ML SYRINGE IVP STA (23:49)
--- NOTE | 2019-03-23 00:25 | CT ---
EXAM: CT pulmonary angiogram. HISTORY: Dyspnea. Chest pain. PROCEDURE: After the intravenous injection of contrast a CT pulmonary angiogram was performed with c ontiguous axial CT images of the chest with multiplanar reformats, MIP images and 3-D reformats. FINDINGS: There is normal enhancement of the pulmonary arteries with no evidence of pulmonary embolis m. The heart is enlarged. There is a small pericardial effusion measuring up to 4 mm AP. The thora cic aorta is normal in appearance. There are calcified mediastinal and hilar lymph nodes. There are bilateral ground-glass opacities which is a nonspecific finding. There is eventration of the right hemidiaphragm. The bones and soft tissues are unremarkable. There is minimal pneumobilia. There ar e no acute findings in the visualized portion of the abdomen. Impression: No evidence of pulmonary embolism. Bilateral ground-glass opacities which is a nonspecific finding. The differential diagnosis includes edema and infection. Small pericardial effusion as described. Cardiomegaly.
--- NOTE | 2019-03-23 01:20 | ED.PDOC ---
General ED Provider: Dr. JERRELL OCONNOR Chief Complaint: Shortness of Air Stated Complaint: i have asthma and im sob and coughing Time Seen by Physician: 01:19 Mode of Arrival: Walk-In Information Source: Patient Primary Care Provider: BINDU PATTON JR Nursing and Triage Documentation Reviewed and Agree: Yes Does patient meet sepsis criteria?: No System Inflammatory Response Syndrome: Not Applicable Sepsis Protocol: For patient's 13 years and over: Temp is 96.8 and below OR 101 and greater Pulse >90 BPM Resp >20/minute Acutely Altered Mental Status Are patient's symptoms suggestive of a new infection, such as: -Pneumonia -Skin, Soft Tissue -Endocarditis -UTI -Bone, Joint Infection -Implantable Device -Acute Abdominal Infection -Wound Infection -Meningitis -Blood Stream Catheter Infection -Unknown Respiratory Complaint Exam Respiratory Complaint/Exam Onset/Duration: 2 days Symptoms Are: Still present Initial Severity: Mild Current Severity: Moderate Location: Unknown Character: Reports Non-productive cough Aggravating: Reports URI Alleviating: Reports Bronchodilators Associated Signs and Symptoms: Reports Fever, Chills, Pleuritic chest pain and URI Home Oxygen Use: No Current Antibiotic Use: No Current Asthma Medication Use: Yes Respiratory Distress: None Inadequate Respiratory Effort: No Dysphagia Present: No Stridor Present: No JVD Present: No Accessory Muscle Use: No Sinus Tenderness: None Grunting Respirations: No Kussmaul Respirations: No Differential Diagnoses: Asthma, COPD Exacerbation, Pneumonia and Pulmonary Embolism Review of Systems Review Of Systems Constitutional: Reports Chills, Fever and Weakness Eyes: Reports No symptoms Ears, Nose, Mouth, Throat: Reports No symptoms Respiratory: Reports No symptoms Cardiac: Reports No symptoms GI: Reports No symptoms : Reports No symptoms Musculoskeletal: Reports No symptoms Skin: Reports No symptoms Neurological: Reports No symptoms Endocrine: Reports No symptoms Hematologic/Lymphatic: Reports No symptoms All Other Systems: Reviewed and Negative FOR[facility]LY [facility], [facility] Social History Do you feel safe at home: Yes History of physical abuse: No History of emotional abuse: No History of sexual abuse: No Smoking and tobacco status: Current every day smoker Tobacco type: cigarettes Smoking packs per day: 0.5 Smoking cigarettes per day: 10.0 Years smoked: 36 Smoking pack-years: 18.00 Tobacco: How many years used: 36 Passive smoking exposure: Yes (daughter smokes in house) Who is smoking: other Smoking status start date: 06/14/82 Second hand smoke exposure: Yes Smoking risk assessment performed: Yes Counseling given: provider counseling Alcohol intake: never Substance use type: does not use Physical Exam Physical Exam Appearance: Well-appearing Pain Distress: Mild Eyes: WILFREDO, EOMI and Conjunctiva clear ENT: Ears normal Neck: Supple Respiratory: Airway patent Cardiovascular: RRR GI/: Soft Musculoskeletal: Normal strength Skin: Warm Neurological: Sensation intact Psychiatric: Affect appropriate Interpretation Radiology Interpretation Radiology Interpretation By: Radiologist Radiology Results: Positive Exam Interpreted: CT Scan EKG Interpretation Time of EKG #1: 01:17 Rate: Normal Rhythm: Sinus Ectopy: None ST Segment: Normal Interpretation: nsr Critical Care Note Critical Care Note Total Time (mins): 0 Course Course Hematology/Chemistry: 03/22/19 22:52 03/22/19 22:52 Orders, Labs, Meds: Lab Review 03/22/19 03/22/19 03/22/19 22:29 22:32 22:52 WBC 10.47 H RBC 4.21 Hgb 13.4 Hct 40.2 MCV 95.5 MCH 31.8 H MCHC 33.3 RDW Coeff of Claudia 13.0 Plt Count 213 Immature Gran % (Auto) 0.3 Neut % (Auto) 72.1 Lymph % (Auto) 21.8 Reynolds % (Auto) 3.7 Eos % (Auto) 1.8 Baso % (Auto) 0.3 Immature Gran # (Auto) 0.0 Neut # (Auto) 7.6 H Lymph # (Auto) 2.3 Reynolds # (Auto) 0.4 Eos # (Auto) 0.2 Baso # (Auto) 0.0 Platelet Estimate [id number] Anisocytosis Not present Puncture Site Lb O2 Saturation 92.0 L ABG pH 7.389 ABG pCO2 38.3 ABG pO2 64.0 L ABG HCO3 23.1 ABG Total CO2 24 ABG Base Excess -2 Valente Test + FiO2 % 21.0 Sodium Potassium Chloride Carbon Dioxide Anion Gap BUN Creatinine Estimated GFR (MDRD) BUN/Creatinine Ratio Glucose Calcium Total Bilirubin AST ALT Alkaline Phosphatase Total Creatine Kinase Troponin I NT-Pro-B Natriuret Pep Total Protein Albumin Globulin Albumin/Globulin Ratio Influ A Molecular Assay Negative by naat Influ B Molecular Assay Negative by naat 03/22/19 03/22/1903/22/19 22:52 22:52 22:52 WBC RBC Hgb Hct MCV MCH MCHC RDW Coeff of Claudia Plt Count Immature Gran % (Auto) Neut % (Auto) Lymph % (Auto) Reynolds % (Auto) Eos % (Auto) Baso % (Auto) Immature Gran # (Auto) Neut # (Auto) Lymph # (Auto) Reynolds # (Auto) Eos # (Auto) Baso # (Auto) Platelet Estimate Anisocytosis Puncture Site O2 Saturation ABG pH ABG pCO2 ABG pO2 ABG HCO3 ABG Total CO2 ABG Base Excess Valente Test FiO2 % Sodium 142.2 Potassium 3.60 Chloride 109.8 H Carbon Dioxide 28.0 Anion Gap 8.00 BUN 13.2 Creatinine 0.91 Estimated GFR (MDRD) 65.00 BUN/Creatinine Ratio 14.50 Glucose 110.4 H Calcium 9.13 Total Bilirubin 0.41 AST 18.8 ALT 14.6 Alkaline Phosphatase 109.7 Total Creatine Kinase 71.8 Troponin I < 0.012 NT-Pro-B Natriuret Pep 50.400 Total Protein 7.08 Albumin 3.98 Globulin 3.10 Albumin/Globulin Ratio 1.28 Influ A Molecular Assay Influ B Molecular Assay Orders Category Date Time Status ABG DRAW REQUEST Stat CARDIO 03/22/19 22:31 Ordered EKG-(ED ONLY) Stat CARDIO 03/22/19 22:29 Ordered NEBULIZER TREATMENT Stat CARDIO 03/22/19 22:33 Ordered NEBULIZER TREATMENT Stat CARDIO 03/22/19 22:33 Ordered NPO REMINDER: IMAGING ONCE CARE 03/22/19 22:34 Completed ED CITY ADMINISTRATOR APPLIED .ONCE EMERGENCY 03/22/19 22:29 Active ED IV/MEDIPORT/POWERPORT .ONCE EMERGENCY 03/22/19 22:30 Active ARTERIAL BLOOD GAS [ABG] Stat LAB 03/22/19 22:29 Completed BLOOD CULTURE (ED ONLY) Stat LAB 03/22/19 22:52 Received CBC W/ AUTO DIFF Stat LAB 03/22/19 22:52 Completed COMPREHENSIVE METABOLIC PANEL Stat LAB 03/22/19 22:52 Completed CREATINE KINASE Stat LAB 03/22/19 22:52 Completed FLU A/B MOLECULAR Stat LAB 03/22/19 22:32 Completed NT-PROBNP Stat LAB 03/22/19 22:52 Completed RBC MORPHOLOGY Stat LAB 03/22/19 22:52 Completed TROPONIN I Stat LAB 03/22/19 22:52 Completed 0.9 % Sodium Chloride [Saline Flush] MEDS 03/22/19 22:29 Active 1 syr IVF PRN PRN Hydromorphone HCl [Dilaudid 1 mg/ml Syringe] MEDS 03/22/19 23:49 Discontinued 1 mg IVP ONCE STA Ipratropium/Albuterol Neb [Duoneb] MEDS 03/22/19 22:33 Discontinued 3 ml NEB ONCE STA Levalbuterol HCl [Xopenex 1.25 mg] MEDS 03/22/19 22:33 Discontinued 1.25 mg NEB ONCE STA Methylprednisolone Sod Succ/Pf [Solu-Medrol 125 mg] MEDS 03/22/19 22:32 Discontinued 125 mg IVP ONCE STA Morphine Sulfate [Morphine 2 mg/ml Syringe] MEDS 03/22/19 23:06 Discontinued [address] CHEST PE PROTOCOL Stat RADS 03/22/19 22:34 Completed Medications Generic Name Dose Route Start Last Admin Trade Name Freq PRN Reason Stop Dose Admin Sodium Chloride 1 syr 03/22/19 22:29 03/22/19 22:43 Saline Flush IVF 1 syr PRN PRN Administration To flush IV Discontinued Medications Generic Name Dose Route Start Last Admin Trade Name Freq PRN Reason Stop Dose Admin Albuterol/Ipratropium 3 ml 03/22/19 22:33 03/22/19 23:19 Duoneb NEB 03/22/19 22:34 3 ml ONCE STA Administration Hydromorphone HCl 1 mg 03/22/19 23:49 03/22/19 23:54 Dilaudid 1 Mg/Ml Syringe IVP 03/22/19 23:50 1 mg ONCE STA Administration Levalbuterol HCl 1.25 mg 03/22/19 22:33 03/22/19 22:55 Xopenex 1.25 Mg NEB 03/22/19 22:34 1.25 mg ONCE STA Administration Methylprednisolone Sodium Succinate 125 mg 03/22/19 22:32 03/22/19 22:42 Solu-Medrol 125 Mg IVP 03/22/19 22:33 125 mg ONCE STA Administration Morphine Sulfate 2 mg 03/22/19 23:06 03/22/19 23:12 Morphine 2 Mg/Ml Syringe IVP 03/22/19 23:07 2 mg ONCE STA Administration Vital Signs: Temp Pulse Resp BP Pulse Ox 03/22/19 22:17 98.2 F 106 H 24 125/87 96 Discharge Plan Discharge Patient Disposition: ADMITTED INPATIENT Discharge Problem: Pneumonia Prescriptions: No Action hydrocodone-acetaminophen 1 EACH tablet 1 ea PO BID RF: 0 citalopram 20 MG tablet 20 mg PO DAILY RF: 0 hydroxyzine HCl 25 MG tablet 50 mg PO TID RF: 0 aripiprazole [Abilify] 20 MG tablet 40 mg PO DAILY RF: 0 Creon 1 CAP capsule,delayed release(DR/EC) 1 cap PO QID RF: 0 metoprolol tartrate 25 MG tablet 25 mg PO BID RF: 0 ED Provider: JERRELL OCONNOR Condition: Good
[2019-03-23] MEDS ORDERED: SODIUM CHLORIDE 1,000 ML IV STA (01:23)
[2019-03-23] MEDS ORDERED: ROCEPHIN 1 GM/50 ML D5W 1 GM/50 ML BAG IV SCH (02:00)
[2019-03-23 02:39] VITALS: BMI 43.2
[2019-03-23] MEDS: NORCO 7.5-325 PO PRN ×3 (02:49→19:27)
[2019-03-23] MEDS: DUONEB NEB SCH ×4 (04:40→22:02)
[2019-03-23] MEDS: LOVENOX SUBCUT SCH ×2 (06:00→09:03)
[2019-03-23] MEDS: SOLU-MEDROL 40 MG IVP SCH ×3 (06:03→16:52)
[2019-03-23] MEDS ORDERED: ABILIFY PO SCH (09:00)
[2019-03-23] MEDS: ATARAX PO SCH ×3 (09:03→20:14)
[2019-03-23] MEDS: CREON DR 12,000 UNITS CAPSULE PO SCH ×4 (09:03→20:14)
[2019-03-23] MEDS: CELEXA PO SCH (09:03)
[2019-03-23] MEDS: LOPRESSOR PO SCH ×2 (09:03→20:14)
[2019-03-23] MEDS: DOXY-100 100 MG in SODIUM CHLORIDE 100 ML IV SCH ×2 (09:03→21:34)
[2019-03-23] MEDS: ROCEPHIN 1 GM/50 ML D5W 1 GM/50 ML BAG IV SCH (20:14)
[2019-03-23] MEDS: ARIPIPRAZOLE 2 MG PO SCH (20:15)
[2019-03-24] MEDS: SOLU-MEDROL 40 MG IVP SCH ×3 (00:05→10:52)
[2019-03-24] MEDS: DUONEB NEB SCH ×4 (04:50→23:30)
[2019-03-24] MEDS: DOXY-100 100 MG in SODIUM CHLORIDE 100 ML IV SCH ×2 (08:13→22:19)
[2019-03-24] MEDS: CREON DR 12,000 UNITS CAPSULE PO SCH ×4 (08:13→20:31)
[2019-03-24] MEDS: LOPRESSOR PO SCH ×2 (08:13→20:31)
[2019-03-24] MEDS: LOVENOX SUBCUT SCH (08:14)
[2019-03-24] MEDS: ATARAX PO SCH ×3 (08:14→20:31)
[2019-03-24] MEDS: CELEXA PO SCH (08:14)
[2019-03-24] MEDS: NORCO 7.5-325 PO PRN ×2 (12:29→21:25)
[2019-03-24] MEDS: ZANTAC PO SCH (18:26)
[2019-03-24] MEDS: ARIPIPRAZOLE 2 MG PO SCH (20:31)
[2019-03-24] MEDS: ROCEPHIN 1 GM/50 ML D5W 1 GM/50 ML BAG IV SCH (20:31)
[2019-03-25] MEDS: DUONEB NEB SCH ×2 (04:45→11:10)
[2019-03-25 04:59] VITALS: BP 100/71; TEMP 98.1
[2019-03-25] MEDS ORDERED: PREDNISONE PO SCH (08:00)
[2019-03-25] MEDS: CELEXA PO SCH (08:19)
[2019-03-25] MEDS: DOXY-100 100 MG in SODIUM CHLORIDE 100 ML IV SCH (08:19)
[2019-03-25] MEDS: LOPRESSOR PO SCH (08:20)
[2019-03-25] MEDS: ZANTAC PO SCH (08:20)
[2019-03-25] MEDS: CREON DR 12,000 UNITS CAPSULE PO SCH (08:20)
[2019-03-25] MEDS: ATARAX PO SCH (08:20)
[2019-03-25] MEDS: LOVENOX SUBCUT SCH (08:20)
[2019-03-25] MEDS: NORCO 7.5-325 PO PRN (09:37)
--- NOTE | 2019-03-25 09:37 | DI ---
EXAM: PA and lateral views of the chest. HISTORY: Cough. Shortness of breath. FINDINGS: The bones are unremarkable. The cardiac silhouette and pulmonary vasculature are within normal limits. The costophrenic angles are clear. No infiltrate or consolidation. Impression: No acute cardiopulmonary disease.
--- NOTE | 2019-04-26 10:39 | HP ---
CHIEF COMPLAINT: "I have asthma; I am short of breath and coughing." DISCUSSION: This is a 48-year-old lady with history of asthma who presented to the Emergency Department with cough, productive prurulent sputum associated with short of breath and conversational dyspnea. She was evaluated in the Emergency Department and found evidence of pneumonia. Because of underlying reactive airway disease, we felt she was too high risk to be treated as an outpatient therefore was admitted to my services as hospitalist for treatment of her pneumonia. PAST MEDICAL HISTORY: MEDICATIONS: Hydrocodone Celexa Hydroxyzine Abilify Creon Metoprolol ALLERGIES: AMOXICILLIN, CAULIFLOWER, CIPROFLOXACIN, ERYTHROMYCIN AND SULFA PAST MEDICAL HISTORY: History of asthma History of depression SOCIAL HISTORY: She is a one pack per day smoker. Does not use alcohol or participate in illegal substances. FAMILY HISTORY: Reviewed and thought not to be pertinent to discussion. REVIEW OF SYSTEMS: Denies any headaches, visual changes, tinnitus. She has had productive cough. No hemoptysis, abdominal pain, blood in the stool, urinary symptoms or seizures. PHYSICAL EXAMINATION: V/S: Temperature 98.2, pulse 106, respiratory rate 24, BP 125/87. HEENT: Pupils are round. NECK: Supple. CHEST: Reveals scattered rhonchi and rales. CARDIOVASCULAR: Regular rate and rhythm. ABDOMEN: Soft, nontender. EXTREMITIES: Distal extremities without cyanosis or edema. ASSESSMENT: 1. PNEUMONIA 2. REACTIVE AIRWAY DISEASE PLAN: 1. She was admitted to my services as hospitalist with IV antibiotics, updraft, monitoring of oxygen levels. Please see orders. MTDD
--- NOTE | 2019-04-26 10:45 | DS ---
PRINCIPAL DIAGNOSIS: 1. PNEUMONIA 2. REACTIVE AIRWAY DISEASE 3. DEPRESSION DISCUSSION: 48-year-old lady who was admitted from the Emergency Department with cough productive of prurulent sputum with exertional shortness of breath and with conversational shortness of breath as well. She had no hemoptysis. In the Emergency Department she was found to have evidence of pneumonia and this patient was admitted to my services as hospitalist. For further details, please see History and Physical. CLINICAL COURSE: The patient was admitted to my services, started on IV fluids, antibiotics as well as steroids, pulmonary updraft. Her oxygenation seemed to improve. Her cough became less productive. She did defervesce and at time of discharge she was ambulatory home without significant shortness of breath. Her cough improved. At this point, we felt she could be discharged. She was discharged with antibiotics and steroids. She will followup with PCP in one week. KASH
== END 2019-03-25 12:25 | disposition home or self-care (01) ==
LOC: ED 22:16 → INTOOBSV 03-23 01:44 → MEDSURG B 03-23 01:44 → UNDODISOB 03-25 11:57
PROVIDERS: ADMIT Family Medicine; ATTEND Family Medicine
DX: R05 Cough; Z72.0 Tobacco use; R50.9 Fever, unspecified; R07.9 Chest pain, unspecified; J18.9 Pneumonia, unspecified organism; R06.02 Shortness of breath; F32.9 Major depressive disorder, single episode, unspecified; J06.9 Acute upper respiratory infection, unspecified; J45.909 Unspecified asthma, uncomplicated; R53.1 Weakness